=== PATIENT | female | born 1940 ===

== ENCOUNTER 2022-08-27 07:46 | Emergency (ER) | payer MEDICAID, SELFPAY ==
[2022-08-27] VITALS (8 sets, daily range): BP systolic 87–157; BP diastolic 45–95; PULSE 82–106; RESP 14–20; TEMP 36.7–36.9; O2SAT 97–99; BMI 36.3
--- NOTE | ~2022-08-27 | XR_ITS ---
EXAMINATION: XR CHEST CLINICAL INFORMATION: Chest pressure. COMPARISON: None available. TECHNIQUE: Frontal view of the chest was obtained. FINDINGS: Lungs are well expanded. No consolidation or pneumothorax. Linear opacity of minimal scar or atelectasis is present at the right lung base. The right lateral costophrenic sulcus appears to be slightly blunted. A trace right pleural effusion is suspected. There is cardiomegaly. No evidence of cephalization of pulmonary venous flow or overt interstitial edema. There is atherosclerotic calcification of the aorta. Multilevel osteophyte formation of the spine. 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 XR/XR chest 1V IMPRESSION: Cardiomegaly and likely trace right pleural effusion. No overt pulmonary edema.
--- NOTE | 2022-08-27 07:56 | ED.GENADULT ---
HPI - General Adult General Chief complaint: General Medical Stated complaint: high blood pressure Time Seen by Provider: 08/27/22 07:52 Source: patient and family Mode of arrival: ambulatory Limitations: language barrier History of Present Illness HPI narrative: Patient is an 82-year-old female with history of HTN and afib on Eliquis presenting with intermittent chest pressure and head/facial pressure and dizziness since 07/21/22. Patient is visiting from [place]. States symptoms began when she was there prior to 07/21 but worsened after arriving in the [place]. Reports feels as though she is drunk. Dizziness is intermittent and worse with head movements. Denies any syncope or near-syncope. Reports labile blood pressures in [place] and states her PCP is aware. Reports frontal head pressure but denies current headache, chest pain, palpitations, or dyspnea. She does report currently feeling dizzy. Reports increased ankle and pedal edema since arrival from [place]. Also reports nasal congestion, sinus pressure, and nonproductive cough. Denies fevers. Denies any blurred vision, double vision, or other vision changes. Denies any rectal bleeding or dark, tarry stools. Denies any abdominal pain or urinary symptoms. She denies any neck pain, denies any falls or trauma. MD complaint: Dizziness, chest pressure Onset (ago): month(s) Location: head, face and chest Severity: moderate Quality: other (pressure) Treatments prior to arrival: none Related Data Allergies Allergy/AdvReac Type Severity Reaction Status Date / Time No Known Allergies Allergy Verified 08/27/22 08:17 Review of Systems Review of Systems: As per HPI. Yes all other systems are reviewed and are negative Constitutional: Constitutional: Reports as per HPI [facility] Past Medical History Medical History (Updated 08/27/22 @ 16:11 by Funmilayo Le NP) Afib HTN (hypertension) Social History Social History Alcohol intake: never Smoked in Last 30 Days: No Use of substances other than those prescribed or required for medical reasons: No Advance Directives: Yes Advance Directives Information Provided: No Advance Directives on File: No Physical Exam ED Vital Signs: Vital Signs - 24 hr 08/27/22 07:59 08/27/22 09:42 08/27/22 10:18 Temperature 98.4 F Pulse Rate 100 86 82 Respiratory Rate 20 14 Blood Pressure 118/69 123/79 87/45 L Pulse Oximetry 99 97 Oxygen Delivery Method Room Air Room Air 08/27/22 10:19 08/27/22 10:22 08/27/22 14:57 Temperature 98.1 F Pulse Rate 95 106 H 84 Respiratory Rate 20 Blood Pressure 134/89 147/88 H 136/81 Pulse Oximetry 98 Oxygen Delivery Method Room Air 08/27/22 14:57 08/27/22 14:58 08/27/22 15:00 Temperature Pulse Rate 84 92 96 Respiratory Rate Blood Pressure 136/81 147/95 H 157/94 H Pulse Oximetry Oxygen Delivery Method BMI result Body Mass Index 36.3 Vital signs have been reviewed and appear to be correct. Blood pressure normal. Heart rate normal. Respiratory rate normal. Temperature normal. Oxygen saturation normal. Const General: cooperative, healthy appearing and no acute distress Orientation/consciousness: oriented to person, oriented to place, oriented to time and patient oriented x3 Limitations: no limitations HENMT Head: Yes normocephalic and Yes atraumatic Ears: external ears normal General nose exam: Normal external nose present Face and sinus: Yes face symmetric Mouth: oropharynx normal and moist mucous membranes Throat: Yes uvula midline Eyes Pupils: Equal, round and reactive pupils present Neck Neck: Yes normal visual inspection, Yes no meningeal signs and Yes supple Resp Effort & Inspection: normal respiratory effort and able to speak in complete sentences Auscultation: clear to auscultation bilaterally Cardio Rate: regular rate Rhythm: abnormal rhythm irregularly irregular Heart sounds: S1 normal heart sound present and S2 normal heart sound present Peripheral pulses: Peripheral pulses 2+ throughout and dorsalis pedis present bilateral GI Palpation (GI): Soft to palpation and nontender Auscultation: normoactive bowel sounds General: Yes no CVA tenderness Back/Spine/Pelvis Back: no CVA tenderness Skin General skin exam: elasticity normal and turgor normal Neuro General: oriented to person, oriented to place, oriented to time, patient oriented x3, gait normal, tone normal, moves all extremities, no meningeal signs, no focal motor deficits and CN's II-XI intact bilaterally Cranial nerves: Yes Equal, round and reactive pupils present Cognition (Neuro): normal cognition Extrem General: Yes full ROM and Yes no calf tenderness Right lower extremity: ankle Details: edema Details: non-pitting and foot Details: edema Location: diffusely Details: non-pitting Left lower extremity: ankle Details: pitting edema Details: non-pitting and foot Details: edema Location: diffusely Details: non-pitting Psych Mental Status: mental status grossly normal Affect: normal affect Thought process: Normal thought process present Course Course Course Narrative: 10:05 BNP 302, labs otherwise unremarkable, urine negative for infection. Will obtain orthostatic VS, likely stable for discharge home for follow up with PCP. FINDINGS: Lungs are well expanded. No consolidation or pneumothorax. Linear opacity of minimal scar or atelectasis is present at the right lung base. The right lateral costophrenic sulcus appears to be slightly blunted. A trace right pleural effusion is suspected. There is cardiomegaly. No evidence of cephalization of pulmonary venous flow or overt interstitial edema. There is atherosclerotic calcification of the aorta. Multilevel osteophyte formation of the spine. 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 XR/XR chest 1V IMPRESSION: Cardiomegaly and likely trace right pleural effusion. No overt pulmonary edema. 11:07 Orthostatic intolerance noted with orthostatic VS. Will administer small fluid bolus and reassess. 14:54 IVF finished infusing, will repeat orthostatic VS and reassess 15:12 Orthostatic VS improved after fluids, feel patient is stable for discharge home at this time. Daughter states that patient will be returning to [place] on 09/07, discussed with patient and daughter that if she develops worsening symptoms prior to return to [place] that she can always return to this or another emergency department for evaluation. Instructed patient to follow-up with her PCP once she has returned to [place]. Feel presentation is most consistent with labile blood pressures and return precautions discussed at bedside. Patient and daughter agreeable with plan of care. Medications Administered Discontinued Medications Generic Name Dose Route Start Last Admin Trade Name Freq PRN Reason Stop Dose Admin Sodium Chloride 500 mls @ 500 mls/hr 08/27/22 11:15 08/27/22 12:10 Ns IV 08/27/22 12:14 Infused .Q1H TESFAYE Infusion Medical Decision Making Medical Decision Making [facility] Narrative: Patient is an 82-year-old female with history of HTN and afib on Eliquis presenting with intermittent chest pressure and head/facial pressure and dizziness since 07/21/22. On exam patient is awake, A+Ox3, nontoxic appearing, normal neurological exam without focal deficits, afib with controlled rate, LS CTA throughout, ABD SNT, mild non-pitting bilateral pedal edema. Given reported symptoms and physical exam findings concerned for anemia, UTI/pna, dehydration, BPPV, allergic rhinitis. Given intermittent chest pressure will obtain labs including troponin and BNP to assess for ACS, fluid overload. No evidence of STEMI on EKG. Unlikely ICH given reported history and physical exam findings. Plan: EKG, labs, CXR, UA Please refer to course for remaining clinical decision making. Differential Diagnosis Differential Diagnoses: The differential diagnosis associated with the presentation includes As above. Admission/Observation Consideration of admission/observation: Escalation of care including admission/observation considered Lab Data MDM Lab Attestation statement: I reviewed the patient's lab results. 08/27/22 08:49 08/27/22 08:49 Labs: Lab Results 08/27/22 08/27/22 08/27/22 Range/Units 08:49 08:49 08:49 WBC 6.4 (4.8-10.8) X10*3/uL RBC 4.64 (4.20-5.50) X10*6/uL Hgb 13.7 (12.0-16.0) g/dl Hct 42.0 (37.0-47.0) % MCV 90.5 (80.0-98.0) fL MCH 29.5 (27.0-33.0) pg MCHC 32.6 (31.0-35.0) g/dl RDW 14.2 (11.0-16.0) % Plt Count 182 (160-400) X10*3/uL MPV 11.6 (9.4-12.3) fL Immature Gran % (Auto) 0.3 (0.0-0.4) % Neut % (Auto) 66.3 (45-73) % Lymph % (Auto) 22.3 (20-40) % [place] % (Auto) 8.1 (2-11) % Eos % (Auto) 2.2 (0-4) % Baso % (Auto) 0.8 (0-2) % Lymph # (Auto) 1.4 (1.2-4.9) X10*3/uL [place] # (Auto) 0.5 (0.1-1.2) X10*3/uL Eos # (Auto) 0.1 (0.0-0.4) X10*3/uL Baso # (Auto) 0.1 (0.0-0.2) X10*3/uL Abs Immat Gran (auto) 0.02 (0.00-0.03) X10*3/uL Absolute Neuts (auto) 4.3 (2.0-8.3) x10*3/uL Absolute Nucleated RBC 0.000 (0.0-0.012) X10*3/uL Nucleated RBC % (auto) 0.0 (0.0-0.2) /100WBC Sodium 142 (135-145) mmol/L Potassium 4.7 (3.3-5.1) mmol/L Chloride 108 (96-108) mmol/L Carbon Dioxide 29 (22-29) mmol/L Anion Gap 10 L (12-20) BUN 13 (9-16) mg/dL Creatinine 0.90 (0.5-1.4) mg/dL Estim Creat Clear Calc 49.4 Estimated GFR 60 Random Glucose 149 H (60-115) mg/dL Calcium 9.2 (8.4-10.2) mg/dL Troponin I High Sens (<3.5-17.0) ng/L B-Natriuretic Peptide 302 H (<100) pg/mL Urine Color Urine Appearance Urine pH (5.0-9.0) Ur Specific [place] (1.005-1.025) Urine Protein (Neg-Trace) mg/dL Urine Glucose (UA) (Negative) mg/dL Urine Ketones (Negative) mg/dL Urine Blood (Negative) Urine Nitrite (Negative) Ur Leukocyte Esterase (Negative) 08/27/22 08/27/22 Range/Units 08:49 09:24 WBC (4.8-10.8) X10*3/uL RBC (4.20-5.50) X10*6/uL Hgb (12.0-16.0) g/dl Hct (37.0-47.0) % MCV (80.0-98.0) fL MCH (27.0-33.0) pg MCHC (31.0-35.0) g/dl RDW (11.0-16.0) % Plt Count (160-400) X10*3/uL MPV (9.4-12.3) fL Immature Gran % (Auto) (0.0-0.4) % Neut % (Auto) (45-73) % Lymph % (Auto) (20-40) % [place] % (Auto) (2-11) % Eos % (Auto) (0-4) % Baso % (Auto) (0-2) % Lymph # (Auto) (1.2-4.9) X10*3/uL [place] # (Auto) (0.1-1.2) X10*3/uL Eos # (Auto) (0.0-0.4) X10*3/uL Baso # (Auto) (0.0-0.2) X10*3/uL Abs Immat Gran (auto) (0.00-0.03) X10*3/uL Absolute Neuts (auto) (2.0-8.3) x10*3/uL Absolute Nucleated RBC (0.0-0.012) X10*3/uL Nucleated RBC % (auto) (0.0-0.2) /100WBC Sodium (135-145) mmol/L Potassium (3.3-5.1) mmol/L Chloride (96-108) mmol/L Carbon Dioxide (22-29) mmol/L Anion Gap (12-20) BUN (9-16) mg/dL Creatinine (0.5-1.4) mg/dL Estim Creat Clear Calc Estimated GFR Random Glucose (60-115) mg/dL Calcium (8.4-10.2) mg/dL Troponin I High Sens < 2.7 (<3.5-17.0) ng/L B-Natriuretic Peptide (<100) pg/mL Urine Color Yellow Urine Appearance Clear Urine pH 6.5 (5.0-9.0) Ur Specific [place] 1.010 (1.005-1.025) Urine Protein Negative (Neg-Trace) mg/dL Urine Glucose (UA) Negative (Negative) mg/dL Urine Ketones Negative (Negative) mg/dL Urine Blood Negative (Negative) Urine Nitrite Negative (Negative) Ur Leukocyte Esterase Negative (Negative) Independent Interpretation I performed an independent interpretation of an: EKG and Plain X-Ray Interpretation: EKG: atrial fibrillation with PVCs, rate 96bpm, normal QT interval, no evidence of STEMI; I independently reviewed the x-ray and agree with the radiologist's interpretation. Radiology Impression Discussion of test interpretation with radiology: I have reviewed the radiologist's reading. Independent Historian Clinical information obtained from an independent historian. History obtained from or confirmed by: Other (daughter) External Record Review External record reviewed: Inpatient record, Office record and Outpatient record Chronic Conditions Patient?s care impacted by: Hypertension and Other (Afib) Discharge Plan Discharge Clinical Impression: Labile blood pressure Patient Disposition: Home, Self-Care Instructions: Dizziness (ED) Additional Instructions: You have been evaluated in the emergency department today for dizziness and blood pressure fluctuations. Please follow up with your primary care provider as soon as you return to [place]. Return to the emergency department immediately for worsening or uncontrolled symptoms, worsening headache, chest pain, shortness of breath, persistent vomiting, vision changes, fainting, or for any other concerning symptoms. Print Language: Malagasy
--- NOTE | 2022-08-27 08:17 | ECG_ITS ---
Test Reason : CHEST PRESSURE Blood Pressure : / mmHG Vent. Rate : 096 BPM Atrial Rate : 000 BPM P-R Int : 000 ms QRS Dur : 078 ms QT Int : 352 ms P-R-T Axes : 000 005 005 degrees QTc Int : 444 ms Atrial fibrillation with premature ventricular or aberrantly conducted complexes Abnormal ECG No previous ECGs available Referred By: Funmilayo Le Electronically Signed By:TRISTEN THORNE MD
[2022-08-27 08:56] LABS: MANUAL DIFF FLAG NO
[2022-08-27 09:01] LABS: Basophils Absolute Auto 0.1 X10*3/uL (0.0-0.2); Basophils Percent Auto 0.8 % (0-2); Eosinophils Absolute Auto 0.1 X10*3/uL (0.0-0.4); Eosinophils Percent Auto 2.2 % (0-4); Hemoglobin 13.7 g/dl (12.0-16.0); Imm Gran Abs Auto 0.02 X10*3/uL (0.00-0.03); Imm Gran Pct Auto 0.3 % (0.0-0.4); Lymphocytes Absolute Auto 1.4 X10*3/uL (1.2-4.9); Lymphocytes Percent Auto 22.3 % (20-40); Mean Corpuscular HGB Conc 32.6 g/dl (31.0-35.0); Mean Corpuscular Hemoglobin 29.5 pg (27.0-33.0); Mean Corpuscular Volume 90.5 fL (80.0-98.0); Mean Platelet Volume 11.6 fL (9.4-12.3); Monocytes Absolute Auto 0.5 X10*3/uL (0.1-1.2); Monocytes Percent Auto 8.1 % (2-11); Neutrophils Absolute Auto 4.3 x10*3/uL (2.0-8.3); Neutrophils Percent Auto 66.3 % (45-73); Platelet Count 182 X10*3/uL (160-400); Red Blood Count 4.64 X10*6/uL (4.20-5.50); Red Cell Distribution Width 14.2 % (11.0-16.0); White Blood Count 6.4 X10*3/uL (4.8-10.8)
[2022-08-27 09:15] LABS: Anion Gap 10 (12-20); Blood Urea Nitrogen 13 mg/dL (9-16); Calcium 9.2 mg/dL (8.4-10.2); Carbon Dioxide 29 mmol/L (22-29); Chloride 108 mmol/L (96-108); Creatinine Clr Calc Pharmacy 49.4; Estimated Glomerular Filt Rate 60; Glucose Random 149 mg/dL (60-115); Potassium 4.7 mmol/L (3.3-5.1); Sodium 142 mmol/L (135-145)
[2022-08-27 09:20] LABS: B Type Natriuretic Peptide 302 pg/mL (<100)
[2022-08-27 09:25] LABS: Troponin-I High Sensitivity < 2.7 ng/L (<3.5-17.0)
[2022-08-27 09:31] LABS: Appearance Urine Clear; Color Urine Yellow; Glucose Urine UA Negative (Negative); Leukocyte Esterase Urine Negative (Negative); Nitrite Urine Negative (Negative); PH 6.5 (5.0-9.0); Urine Blood Negative (Negative); Urine Ketones Negative (Negative); Urine Protein Negative (Neg-Trace)
[2022-08-27] MEDS: 0.9 % Sodium Chloride 500 ML IV (11:17)
== END 2022-08-27 16:27 | disposition home or self-care (01) ==
PROVIDERS: Registered Nurse Emergency; Emergency Provider Emergency Medicine
DX: R09.89 Other specified symptoms and signs involving the circulatory and respiratory systems (principal); R42 Dizziness and giddiness; R60.0 Localized edema; I10 Essential (primary) hypertension; I48.91 Unspecified atrial fibrillation; Z79.01 Long term (current) use of anticoagulants
CPT/HCPCS: 36415; 71045; 80048; 81003; 83880; 84484; 85025; 93005; 96360; 99284; 99285

== ENCOUNTER 2023-12-19 13:53 | Inpatient (IN) | payer MEDICARE, SELFPAY ==
[2023-12-19] VITALS (7 sets, daily range): BP systolic 140–173; BP diastolic 84–111; PULSE 89–108; RESP 16–20; TEMP 35.8–36.9; O2SAT 95–98; BMI 43.9
--- NOTE | ~2023-12-19 | XR_ITS ---
EXAMINATION: XR CHEST CLINICAL INFORMATION: Pain, injury COMPARISON: Chest radiograph 08/27/2022 TECHNIQUE: Frontal view of the chest was obtained. FINDINGS: The heart is enlarged. There is equivocal upper zone redistribution. Bibasilar atelectasis is present. An area of infiltrate may be present at the left lung base. Small bilateral pleural effusions are seen. Degenerative changes are present throughout the spine with mild scoliosis. XR/XR chest 1V IMPRESSION: Cardiomegaly with equivocal mild pulmonary vascular congestion and small bilateral pleural effusions. Possible infiltrate left lung base. Electronically signed by: Jesús Gillespie MD 12/19/2023 04:21 PM EDT
--- NOTE | 2023-12-19 14:23 | ECG_ITS ---
Test Reason : SOB Blood Pressure : / mmHG Vent. Rate : 099 BPM Atrial Rate : 000 BPM P-R Int : 000 ms QRS Dur : 074 ms QT Int : 312 ms P-R-T Axes : 000 007 -04 degrees QTc Int : 400 ms Atrial fibrillation Abnormal ECG When compared with ECG of 27-AUG-2022 08:31, No significant change was found Referred By: Carissa Pastrana Electronically Signed By:RASHEEDA TORRE
--- NOTE | 2023-12-19 14:39 | ED_ITS ---
HPI - General Adult General Chief complaint: Dizziness Stated complaint: SOB ON EXERTION,WEAK,HIGH BP 151/121 PER EMS Time Seen by Provider: 12/19/23 14:28 Source: patient, family ( Daughter) and EMS Mode of arrival: EMS Limitations: no limitations History of Present Illness ED Provider: DR. Salas HPI narrative: 83-year-old female history of hypertension and AFib on Eliquis patient recently moved from [place] to live with [place]In the [place] of transferring her medical record and insurance to the [email or web address] system. Patient Eliquis, metoprolol, atorvastatin. For the past month patient been having generalized weakness and shortness of breath, symptoms is worsening now patient is complaining difficulty breathing when she lies supine at nighttime require multiple pillows to sleep on and she still get up at the middle of the night gasping for air and turn the fan on in order to breathe better, noticed also swelling of her ankles bilaterally. No fever, no chills, no exposure to a sick contact, no coughing. Related Data Allergies Allergy/AdvReac Type Severity Reaction Status Date / Time No Known Allergies Allergy Verified 12/19/23 14:27 Review of Systems 2 Review of Systems: All other systems are reviewed and are negative Constitutional: Reports as per HPI and Reports no additional constitutional complaints Eyes: Reports as per HPI and Reports no additional eye complaints Reports system reviewed and no additional complaints, except as documented Cardiovascular: Reports as per HPI and Reports no additional cardiovascular complaints Respiratory: Reports as per HPI and Reports no additional respiratory complaints Gastrointestinal: Reports as per HPI and Reports no additional gastrointestinal complaints Genitourinary: Reports no additional female genitourinary complaints Musculoskeletal: Reports no additional musculoskeletal complaints Skin/Breast: Reports system reviewed and no additional complaints, except as docu Psychiatric: Reports no additional psychiatric complaints Endocrine: Reports no additional endocrine complaints Hematologic/Lymphatic: Reports no additional hematologic/lymphatic complaints Allergic/Immunologic: Reports no additional allergic/immunologic complaints Reports system reviewed and no additional complaints, except as documented and Reports Abnormal speech present [facility] Past Medical History Medical History Afib HTN (hypertension) Social History Social History Alcohol intake: never Smoked in Last 30 Days: No Use of substances other than those prescribed or required for medical reasons: No Advance Directives: No Advance Directives Information Provided: No Physical Exam ED Vital Signs: Vital Signs - 24 hr 12/19/23 14:24 12/19/23 15:25 12/19/23 15:34 Temperature 98.5 F 97.9 F Pulse Rate 89 107 H Respiratory Rate 20 Blood Pressure 173/111 H 148/105 H 148/105 H Pulse Oximetry 98 96 Oxygen Delivery Method Room Air Room Air BMI result Body Mass Index 43.9 Vital signs have been reviewed and appear to be correct. Blood pressure elevated. Heart rate normal. Respiratory rate normal. Temperature normal. Oxygen saturation normal. Appearance: Alert. Oriented X3. No acute distress. Head: Normal external exam. Normocephalic. Atraumatic. No Velazquez signs noted. No raccoon eyes noted Eyes: PERRLA. EOMI. Conjunctiva and sclera normal. Eyelids normal. ENT: TM's Normal. Pharynx normal. Uvula midline. Moist mucous membranes. No trismus noted. No drooling noted. No muffled voice noted. Neck: Normal inspection. Neck supple. FROM. No adenopathy. Thyroid Normal. No meningeal signs. No neck mass noted. CVS: Normal heart rate and rhythm. Heart sound normal. No murmurs noted. Pulses normal throughout. Respiratory: No respiratory distress. Painless inspiration. Breath sounds normal. Bilateral lower basilar rales.Chest nontender. No accessory muscle usage noted or decreased air movement noted. Abdomen: Soft and nontender. Bowel sounds normal in all 4 quadrants. No distention noted. No organomegaly noted. No visible injury noted. Back: No CVA tenderness. Full range of motion noted. Skin: Skin warm and dry. Normal skin color. Normal skin turgor. No rashes/lesions/lacerations noted. Extremities: +1 bilateral lower extremity edema. Extremities exhibit normal range of motion. Extremities nontender. Neuro: Oriented X 3. Cranial nerve exam: II-XII are grossly intact No motor deficit. No sensory deficit. Reflexes normal. Course Reevaluation(s) Reevaluation #1: 83-year-old female presented with PND and exertional dyspnea past medical record is unavailable at the moment in the process of being transferred from [place] only taking Eliquis and metoprolol currently. symptoms , chest x- ray, labs are suggestive of congestive heart failure. Admit for CHF management received Lasix and nitro in the ED. Time: 16:33 Medications Administered Discontinued Medications Generic Name Dose Route Start Last Admin Trade Name Macey PRN Reason Stop Dose Admin Furosemide 40 mg 12/19/23 14:38 12/19/23 15:25 Furosemide 40 Mg/4 Ml Vial IVPUSH 12/19/23 14:39 40 mg ONCE ONE Administration Protocol Nitroglycerin 0.5 inch 12/19/23 14:38 12/19/23 15:33 Nitroglycerin 2 % Oint 1 Gm Packet TRANSDERMA 12/19/23 14:39 0.5 inch ONCE ONE Administration Medical Decision Making Differential Diagnosis Differential Diagnoses: The differential diagnosis associated with the presentation includes ( congestive heart failure, pneumonia, pleural effusion, severe anemia, electrolyte derangement, rapid AFib, ensure anticoagulation.) Admission/Observation Consideration of admission/observation: Escalation of care including admission/observation considered Consult Healthcare Provider Management of the patient was discussed with: Hospitalist ( Dr. Chávez) Lab Data MDM Lab Attestation statement: I reviewed the patient's lab results. 12/19/23 15:23 12/19/23 15:23 Labs: Lab Results 12/19/23 12/19/23 Range/Units 15:23 15:54 WBC 9.1 (4.8-10.8) X10*3/uL RBC 4.53 (4.20-5.50) X10*6/uL Hgb 13.6 (12.0-16.0) g/dl Hct 41.1 (37.0-47.0) % MCV 90.7 (80.0-98.0) fL MCH 30.0 (27.0-33.0) pg MCHC 33.1 (31.0-35.0) g/dl RDW 15.0 (11.0-16.0) % Plt Count 159 L (160-400) X10*3/uL MPV 12.6 H (9.4-12.3) fL Immature Gran % (Auto) 0.4 (0.0-0.4) % Neut % (Auto) 73.5 H (45-73) % Lymph % (Auto) 14.4 L (20-40) % [place] % (Auto) 10.3 (2-11) % Eos % (Auto) 0.5 (0-4) % Baso % (Auto) 0.9 (0-2) % Lymph # (Auto) 1.3 (1.2-4.9) X10*3/uL [place] # (Auto) 0.9 (0.1-1.2) X10*3/uL Eos # (Auto) 0.1 (0.0-0.4) X10*3/uL Baso # (Auto) 0.1 (0.0-0.2) X10*3/uL Abs Immat Gran (auto) 0.04 H (0.00-0.03) X10*3/uL Absolute Neuts (auto) 6.7 (2.0-8.3) x10*3/uL Absolute Nucleated RBC 0.000 (0.0-0.012) X10*3/uL Nucleated RBC % (auto) 0.0 (0.0-0.2) /100WBC PT 22.9 H (10.9-12.4) SEC INR 2.0 H (0.9-1.1) APTT 35.8 (26.0-36.8) SEC Sodium 142 (135-145) mmol/L Potassium 4.6 (3.3-5.1) mmol/L Chloride 109 H (96-108) mmol/L Carbon Dioxide 26 (22-29) mmol/L Anion Gap 12 (12-20) BUN 14 (9-16) mg/dL Creatinine 0.83 (0.5-1.4) mg/dL Estim Creat Clear Calc 58.6 Estimated GFR > 60 Random Glucose 136 H (60-115) mg/dL Calcium 8.9 (8.4-10.2) mg/dL Magnesium 2.0 (1.6-2.6) mg/dL Total Bilirubin 3.9 H (0.0-1.0) mg/dL AST 29 (5-31) U/L ALT 21 (0-31) U/L Alkaline Phosphatase 61 (39-117) U/L Troponin I High Sens 7.5 D (<3.5-17.0) ng/L B-Natriuretic Peptide 1062 H (<100) pg/mL Total Protein 5.8 L (6.5-8.0) g/dL Albumin 3.4 L (3.5-5.0) g/dL Urine Color Yellow Urine Appearance Clear Urine pH 6.0 (5.0-9.0) Ur Specific [place] 1.010 (1.005-1.025) Urine Protein 30 (1+) H (Neg-Trace) mg/dL Urine Glucose (UA) Negative (Negative) mg/dL Urine Ketones Negative (Negative) mg/dL Urine Blood Negative (Negative) Urine Nitrite Negative (Negative) Ur Leukocyte Esterase Negative (Negative) Urine RBC 0-2 (0-2) /HPF Urine WBC 0-5 (0-5) /HPF Ur Squamous Epith Cells 3-5 (0-2) /HPF Urine Bacteria None Seen (None Seen) Hyaline Casts 0-2 (0-2) /LPF Influenza Type A (PCR) NEGATIVE (Negative) Influenza Type B (PCR) NEGATIVE (Negative) RSV RNA Qual (PCR) NEGATIVE (Negative) SARS-CoV-2 RNA (RT-PCR) NEGATIVE (Negative) Independent Interpretation I performed an independent interpretation of an: EKG ( Atrial fibrillation at 99 beats per minute, with no significant change from previous EKG.) and Plain X- Ray ( chest:Cardiomegaly with equivocal mild pulmonary vascular congestion and small bilateral pleural effusions. Possible infiltrate left lung base. ) Radiology Impression Discussion of test interpretation with radiology: I have reviewed the radiologist's reading. Chronic Conditions Patient?s care impacted by: Hypertension and Other ( Atrial fibrillation.) Discharge Plan Discharge Clinical Impression: Congestive heart failure (CHF) Patient Disposition: Admitted As Inpatient Print Language: Tajik
[2023-12-19] MEDS: Furosemide 40 MG/4 ML VIAL IVPUSH ×2 (15:25→17:56)
[2023-12-19 15:28] LABS: MANUAL DIFF FLAG NO
[2023-12-19 15:33] LABS: Basophils Absolute Auto 0.1 X10*3/uL (0.0-0.2); Basophils Percent Auto 0.9 % (0-2); Eosinophils Absolute Auto 0.1 X10*3/uL (0.0-0.4); Eosinophils Percent Auto 0.5 % (0-4); Hematocrit 41.1 % (37.0-47.0); Hemoglobin 13.6 g/dl (12.0-16.0); Imm Gran Abs Auto 0.04 X10*3/uL (0.00-0.03); Imm Gran Pct Auto 0.4 % (0.0-0.4); Lymphocytes Absolute Auto 1.3 X10*3/uL (1.2-4.9); Lymphocytes Percent Auto 14.4 % (20-40); Mean Corpuscular HGB Conc 33.1 g/dl (31.0-35.0); Mean Corpuscular Volume 90.7 fL (80.0-98.0); Mean Platelet Volume 12.6 fL (9.4-12.3); Monocytes Absolute Auto 0.9 X10*3/uL (0.1-1.2); Monocytes Percent Auto 10.3 % (2-11); Neutrophils Absolute Auto 6.7 x10*3/uL (2.0-8.3); Neutrophils Percent Auto 73.5 % (45-73); Platelet Count 159 X10*3/uL (160-400); Red Blood Count 4.53 X10*6/uL (4.20-5.50); White Blood Count 9.1 X10*3/uL (4.8-10.8)
[2023-12-19] MEDS: Nitroglycerin 2 % Oint 1 GM Packet 0.5 INCH TRANSDERMA (15:33)
[2023-12-19 15:40] LABS: Prothrombin Time 22.9 SEC (10.9-12.4)
[2023-12-19 15:42] LABS: Partial Thromboplastin Time 35.8 SEC (26.0-36.8)
[2023-12-19 15:51] LABS: Alanine Aminotransferase 21 U/L (0-31); Albumin Level 3.4 g/dL (3.5-5.0); Alkaline Phosphatase 61 U/L (39-117); Anion Gap 12 (12-20); Aspartate Amino Transferase 29 U/L (5-31); Bilirubin Total 3.9 mg/dL (0.0-1.0); Blood Urea Nitrogen 14 mg/dL (9-16); Calcium 8.9 mg/dL (8.4-10.2); Carbon Dioxide 26 mmol/L (22-29); Chloride 109 mmol/L (96-108); Creatinine Clr Calc Pharmacy 58.6; Estimated Glomerular Filt Rate > 60; Glucose Random 136 mg/dL (60-115); Potassium 4.6 mmol/L (3.3-5.1); Sodium 142 mmol/L (135-145); Total Protein 5.8 g/dL (6.5-8.0)
[2023-12-19 15:58] LABS: Troponin-I High Sensitivity 7.5 ng/L (<3.5-17.0)
[2023-12-19 16:00] LABS: B Type Natriuretic Peptide 1062 pg/mL (<100)
[2023-12-19 16:03] LABS: Appearance Urine Clear; Color Urine Yellow; Glucose Urine UA Negative (Negative); Leukocyte Esterase Urine Negative (Negative); Nitrite Urine Negative (Negative); UMIC TRIGGER UACC YES; Urine Blood Negative (Negative); Urine Ketones Negative (Negative); Urine Protein 30 (1+) mg/dL (Neg-Trace)
[2023-12-19 16:05] LABS: Bacteria Urine None Seen (None Seen); Hyaline Casts Urine 0-2 /LPF (0-2); RBC Urine 0-2 /HPF (0-2); WBC Urine 0-5 /HPF (0-5)
[2023-12-19 16:16] LABS: Influenza A PCR NEGATIVE (Negative); Influenza B PCR NEGATIVE (Negative); Resp Syncy Virus RNA Qual PCR NEGATIVE (Negative); SARS COV2 PCR INHOUSE NEGATIVE (Negative)
--- NOTE | 2023-12-19 16:36 | PC.NURSE ---
up to commode with one assist, total of 300mL urine output.
--- NOTE | 2023-12-19 17:59 | PC.NURSE ---
patient medicated per the MAR, placed in hospital bed for comfort. offering no other complaints at this time, resting quietly in room w/ pure wick in place. urine output from pure wick approx 900mL
--- NOTE | 2023-12-19 18:28 | P.HPHOSP_ITS ---
History of Present Illness Date of Service: 12/19/23 Attending physician on admission: Star Chávez Chief Complaint: chf 83 y/o F with multiple comorbidities including hypertension, chronic AFib, history of syncopal episode recently, osteoarthritis-she recently moved from [place] to visit her daughter and subsequently did not decide to go back. She is having progressive shortness of breath for few weeks, leg edema, did not check her weight, she says she does not restrict her diet or hydration, neither she takes her weights. Patient says that from last couple of weeks it is becoming very difficult to lie flat, using multiple pillows, wake up in the night to catch breathing sometime. In addition to that patient says she has dizziness-for which? Unclear reason she was started on losartan in [place], she said she ran out of it. Denies any fever or chills or chest pain or palpitations or cough. Labs grider-CBC fine mild thrombocytopenia. BMP: Seems fine. Bilirubin is 3.9 BNP is 1062 Chest x-ray:Cardiomegaly with equivocal mild pulmonary vascular congestion and small bilateral pleural effusions. Possible infiltrate left lung base. EKG: AFib with RVR rate of 99 around Patient was given IV Lasix and requested admission for CHF exacerbation. Review of Systems 2 Review of Systems: As above. Yes all other systems are reviewed and are negative [facility] Medical History Afib HTN (hypertension) Social History Alcohol intake: never Patient Tobacco Use Status: Tobacco use Unknown Smoked in Last 30 Days: No Use of substances other than those prescribed or required for medical reasons: No Advance Directives: No Advance Directives Information Provided: No Meds Allergies Allergy/AdvReac Type Severity Reaction Status Date / Time No Known Allergies Allergy Verified 12/19/23 14:27 Active Medications: Current Medications Acetaminophen (Acetaminophen 325 Mg Tablet) 650 mg PO Q6H PRN PRN Reason: Pain, Mild (Pain Scale 1-3), fever or headache Calcium Carbonate (Calcium Carbonate 750 Mg Tab.Chew) 750 mg PO Q4H PRN PRN Reason: Heartburn Furosemide (Furosemide 40 Mg/4 Ml Vial) 40 mg IVPUSH DAILY [facility]; Protocol Last Admin: 12/19/23 17:56 Dose: 40 mg Magnesium Hydroxide (Milk Of Magnesia 30 Ml Oral.Susp) 30 ml PO DAILY PRN PRN Reason: Constipation Melatonin (Melatonin 3 Mg Tablet) 6 mg PO BEDTIME PRN PRN Reason: Insomnia Sodium Chloride (0.9 % Sodium Chloride Flush 3 Ml Syringe) 3 ml IVFLUSH QSHIFT [facility] Home Medications ?Medication ?Instructions ?Recorded ?Confirmed ?Last Taken ?Type apixaban 5 mg tablet (Eliquis) 2.5 mg PO BID 12/19/23 12/19/23 12/19/23 07:00 History hydralazine 25 mg tablet 25 mg PO DAILY 12/19/23 12/19/23 Unknown History losartan 100 mg tablet 100 mg PO DAILY 12/19/23 12/19/23 12/19/23 07:00 History metoprolol succinate 100 mg 100 mg PO BID 12/19/23 12/19/23 12/19/23 07:00 History tablet,extended release 24 hr Physical Exam 2 Vital Signs and Narrative: Vital Signs: Last Vital Signs Temp 98.4 F 12/19/23 17:52 Pulse 103 H 12/19/23 17:52 Resp 16 12/19/23 17:52 BP 150/101 H 12/19/23 17:52 Pulse Ox 96 12/19/23 17:52 O2 Del Method Room Air 12/19/23 17:52 BMI result Body Mass Index 43.9 Appearance: Alert.? Oriented X3.? sob Eyes: Pupils equal, round and reactive to light.? Sclera nonicteric.? ENT: Pharynx normal.? Moist mucous membranes. cvs: irregular rythem,, [id number] ,jvd+ res: Air entry fair has bilateral rales abd: no rebound or guarding ,nt, bs present. ext pulses present , no cyanosis ,3+edema neuro: axo3 , nonfocal. Results Labs 12/19/23 15:23 12/19/23 15:23 Labs: Laboratory Results - last 24 hr 12/19/23 12/19/23 15:23 15:54 MCV 90.7 MCH 30.0 MCHC 33.1 RDW 15.0 Plt Count 159 L MPV 12.6 H Immature Gran % (Auto) 0.4 Neut % (Auto) 73.5 H Lymph % (Auto) 14.4 L [place] % (Auto) 10.3 Eos % (Auto) 0.5 Baso % (Auto) 0.9 Lymph # (Auto) 1.3 [place] # (Auto) 0.9 Eos # (Auto) 0.1 Baso # (Auto) 0.1 Abs Immat Gran (auto) 0.04 H Absolute Neuts (auto) 6.7 Absolute Nucleated RBC 0.000 Nucleated RBC % (auto) 0.0 PT 22.9 H INR 2.0 H APTT 35.8 Anion Gap 12 Estim Creat Clear Calc 58.6 Estimated GFR > 60 Random Glucose 136 H Calcium 8.9 Magnesium 2.0 Total Bilirubin 3.9 H AST 29 ALT 21 Alkaline Phosphatase 61 Troponin I High Sens 7.5 D B-Natriuretic Peptide 1062 H Total Protein 5.8 L Albumin 3.4 L Urine Color Yellow Urine Appearance Clear Urine pH 6.0 Ur Specific [place] 1.010 Urine Protein 30 (1+) H Urine Glucose (UA) Negative Urine Ketones Negative Urine Blood Negative Urine Nitrite Negative Ur Leukocyte Esterase Negative Urine RBC 0-2 Urine WBC 0-5 Ur Squamous Epith Cells 3-5 Urine Bacteria None Seen Hyaline Casts 0-2 Influenza Type A (PCR) NEGATIVE Influenza Type B (PCR) NEGATIVE RSV RNA Qual (PCR) NEGATIVE SARS-CoV-2 RNA (RT-PCR) NEGATIVE Imaging Radiologist's Impressions: Impressions Chest X-Ray 12/19/23 14:23 IMPRESSION: Cardiomegaly with equivocal mild pulmonary vascular congestion and small bilateral pleural effusions. Possible infiltrate left lung base. Electronically signed by: Jesús Gillespie MD 12/19/2023 04:21 PM EDT Assessment and Plan (1) Congestive heart failure (CHF): Qualifiers: Heart failure type: unspecified Heart failure chronicity: unspecified Qualified Code(s): I50.9 - Heart failure, unspecified Status: Acute Plan 83 y/o F with multiple comorbidities including hypertension, chronic AFib, history of syncopal episode recently, osteoarthritis-comes with possible CHF exacerbation. Possible acute CHF exacerbation Short of breath, elevated BNP, trop x2 negative, EKG AFib with RVR Ventricular rate is stable around 100 range Monitor I&O Daily weights Continue home metoprolol, added losartan, IV Lasix Cardiology evaluation Uncontrolled hypertension: ? Question dizziness related to that since her PCP added losartan. Continue beta-katerina and losartan. Chronic AFib with RVR: Heart rate is around 100 maximum Continue home metoprolol dose. Continue Eliquis once reconciled Morbid obesity: Patient was encouraged to lose weight and cutdown calories. Continue medications for hypertension and other comorbidities once medications are reconciled. Above management discussed with the patient and her daughter at bedside in detail length they both understand and in agreement with the above plan, time spent 70 minute. Patient will benefit from 2 midnight stays considering CHF new onset and need further cardiac workup and IV diuresis Quality Stroke Does the patient have a stroke diagnosis?: No VTE Prior VTE?: No VTE Risk Level:: Medical - low VTE Device Contraindication: Patient Refused VTE Drug Contraindication: Patient Refused
--- NOTE | 2023-12-19 18:41 | PHA.MEDREC ---
Addendum entered by Taurus Cole [facility] 12/19/23 19:38: med rec checked by [facility] Original Note: Pharmacy Consult ? Medication Reconciliation Pharmacy has completed the medication reconciliation. Confirmed medications with daughter at bed side and prescription RX bottles from [facility] in [place]. The patient is taking Metoprolol Succinate 100mg 1 BID, Losartan Potassium 100 mg 1 daily, Eliquis 5mg and patient daughter states she recently had a fall in October and before the patient was taking a 1/2 tab BID regularly but states a Doctor upped it to 1 tab BID but thinks since she was taking 1 full tab shes been bleeding more and they brought her back down to 1/2 BID and its been better for her. The patient also exclaimed she has not been taking Hydralazine 25mg tab really and it seems like it since her bottle she has seems pretty full still. The patient states she took her morning medications this morning.
[2023-12-19] MEDS: Metoprolol Tartrate 100 MG TABLET PO (19:10)
[2023-12-19] MEDS: 0.9 % Sodium Chloride Flush 3 ML SYRINGE IVFLUSH (22:55)
[2023-12-20] VITALS (8 sets, daily range): BP systolic 136–161; BP diastolic 69–96; PULSE 88–110; RESP 16–22; TEMP 35.9–36.5; O2SAT 94–97
--- NOTE | 2023-12-20 07:00 | CA_ITS ---
Transthoracic Echocardiogram Patient (Last, First, Middle): Sandra Dorado, Gender: Female Date of : 1940 Age: 83 Procedure Date: 12/20/2023 Procedure Type: Transthoracic [place]ogram [place] [facility] [place]: 157.48 cm Weight: 108.86 kg BSA: 2.07 m2 Heart Rate: 107 bpm BP: 139 / 96 mmHg Risk Assessment Analyst: TO Referring MD: Star Chávez MD Symptoms: Chf Study Quality: Adequate ECG Rhythm: Atrial Fibrillation Conclusions: - The left ventricular systolic function is low normal. The calculated ejection fraction is 53% by biplane method. - The basal inferolateral segment is hypokinetic. - Severe biatrial enlargement. - There is moderate mitral valve regurgitation. - There is moderate tricuspid valve regurgitation. - Mild pulmonary hypertension is present. - Moderate plaque is seen in the sino tubular ridge. Findings Left Ventricle Normal left ventricular cavity size. The left ventricular systolic function is low normal. The calculated ejection fraction is 53% by biplane method. Diastolic function is indeterminate on the basis of available data. There is moderate septal asymmetric hypertrophy. Wall Motion Rest Echo Findings The basal inferolateral segment is hypokinetic. Right Ventricle Normal right ventricular cavity size. There is low normal right ventricular systolic function. Atria Severe biatrial enlargement. Aortic Valve There is a normal trileaflet aortic valve. There is mild calcification of the aortic valve. There is no aortic valve stenosis. There is no aortic valve regurgitation. Mitral Valve The mitral valve appears normal. There is mild anterior mitral leaflet thickening. There is moderate mitral valve regurgitation. There is no mitral valve stenosis. Pulmonic Valve The pulmonic valve is likely normal. Tricuspid Valve Normal tricuspid valve structure. There is moderate tricuspid valve regurgitation. Mild pulmonary hypertension is present. Great Vessels The aortic arch is normal in size. There is mild dilatation of the ascending aorta measuring 3.90 cm. Moderate plaque is seen in the sino tubular ridge. Venous The inferior vena cava is mildly dilated and collapses less than 50% with inspiration. Pericardium/Pleural There is a small loculated pericardial effusion overlying the right atrium. Prior Study Comparison No prior study available for comparison. Measurements 2D Linear Measurements IVSd: 1.44 0.6-0.9/0.6-1.0 cm LVIDd: 4.09 3.9-5.3/4.2-5.9 cm LVIDd Index: 1.98 2.4-3.2/2.2-3.1 cm/m2 LVIDs: 2.98 2.0-3.6 cm LVPWd: 0.86 0.7-1.1 cm LA Diam: 3.20 2.7-3.8/3.0-4.0 cm LAIDs Index: 1.55 1.5-2.3 cm/m2 LV Mass: 199.56 67-162/88-224 g LV Mass Index: 96.41 43-95/49-115 g/m2 LVOT Diam: 2.00 3.0+(-)1.3 cm 2D Systolic Function EF 4C: 51.50 >55% EF 2C: 54.10 >55% EF BiP: 52.90 >55% Mitral Valve MV VTI: 0.26 MV Pk John: 1.31 MV Mn John: 0.65 MV Pk Grad: 7.00 MV Mn Grad: 3.00 MV Pk E: 1.12 MV Decel Time: 121.00 E'Lateral: 5.87 E'Medial: 7.36 E/E' Med: 15.20 E/E' Lat: 19.10 PHT: 36.00 MVA PHT: 6.11 MVA Continuity: 1.24 Decel [place]: 9.19 MR Vol - PW Dopp: 32.20 MR VTI: 1.61 MR ERO: 20.00 MR Alias John: 0.35 MR RAD: 0.70 Aortic Valve AoV Pk John: 1.11 AoV Pk Grad: 5.00 LVOT LVOT Pk John: 0.70 LVOT Mn John: 0.46 LVOT VTI: 0.10 LVOT Pk Grad: 2.00 LVOT Mn Grad: 1.00 LVOT Diam: 2.00 LVOT Area: 3.14 Diastolic Function MV Pk E: 1.12 E'Medial: 7.36 E/E' Med: 15.20 E' Laterial: 5.87 E/E' Lat: 19.10 Right Ventricle TAPSE (mm): 16.16 TVS' John: 10.08 Tricuspid Valve TR Pk John: 3.10 TR Pk Grad: 38.00 RA Press: 15.00 RVSP: 53.00 Great Vessels Aorta Sinus of Valsalva: 3.09 2.0-3.5 cm Ao Asc: 3.90 2.1-3.4 cm Ao Arch: 2.90 Updated in Other Vendor System with Status of Final Jimmie Balderas MD electronically signed on 12/20/2023 11:44:44 AM with status of Final
[2023-12-20 08:30] LABS: Anion Gap 13 (12-20); Blood Urea Nitrogen 14 mg/dL (9-16); Calcium 8.9 mg/dL (8.4-10.2); Carbon Dioxide 30 mmol/L (22-29); Chloride 104 mmol/L (96-108); Creatinine Clr Calc Pharmacy 62.3; Estimated Glomerular Filt Rate > 60; Glucose Random 119 mg/dL (60-115); Potassium 3.3 mmol/L (3.3-5.1); Sodium 144 mmol/L (135-145)
[2023-12-20 08:34] LABS: B Type Natriuretic Peptide 790 pg/mL (<100)
--- NOTE | 2023-12-20 10:02 | PM.CNCAR ---
History of Present Illness History of Present Illness Date of Service: 12/20/23 Chief complaint: AFIB, htn Narrative: This is a cardiology consultation regarding congestive heart failure and hypertension. 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 Apparently history of hypertension as well as chronic atrial fibrillation. Recently, she has not been feeling good. She has been getting short increasingly for the last few weeks and she has had off and on leg swelling. Having difficulty lying down and has to use multiple pillows. She also has to wake up at night to catch her breath. There was 1 episode where she fell down but not entirely clear as to what that was. She has been admitted with diagnosis of atrial fibrillation, hypertension as well as congestive heart failure and we are asked to assess her. Review of Systems Review of Systems: Yes all other systems are reviewed and are negative Constitutional: Constitutional: Reports as per HPI and Reports no additional constitutional complaints Eyes: Eyes: Reports as per HPI and Denies no additional eye complaints ENT: Denies system reviewed and no additional complaints, except as documented and Reports as per HPI Cardiovascular: Cardiovascular: Reports as per HPI, Reports no additional cardiovascular complaints, Denies acrocyanosis, Denies cool extremities, Denies chest pain, Denies leg edema, Denies lightheadedness, Denies palpitations and Reports dyspnea Respiratory: Respiratory: Reports as per HPI, Denies no additional respiratory complaints and Reports dyspnea Gastrointestinal: Gastrointestinal: Reports as per HPI and Denies no additional gastrointestinal complaints Genitourinary: Genitourinary: Reports as per HPI Musculoskeletal: Musculoskeletal: Reports no additional musculoskeletal complaints and Reports as per HPI Integumentary/Breasts: Skin/Breast: Reports system reviewed and no additional complaints, except as docu Neurologic: Reports system reviewed and no additional complaints, except as documented and Reports as per HPI Psychiatric: Psychiatric: Reports no additional psychiatric complaints and Reports as per HPI Endocrine: Endocrine: Reports no additional endocrine complaints, Reports as per HPI and Denies palpitations Hematologic/Lymphatic: Hematologic/Lymphatic: Reports no additional hematologic/lymphatic complaints and Reports as per HPI Allergic/Immunologic: Allergic/Immunologic: Reports no additional allergic/immunologic complaints and Reports as per HPI PMF Past Medical History Medical History Afib HTN (hypertension) Family History Family History Father No problems noted. Mother No problems noted. Social History Social History Household Members: Children Housing: House Do you presently have visiting nurse or other home services: No Alcohol intake: never Patient Tobacco Use Status: Former Tobacco user e-Cigarette/Vaping Use: Never Used Second Hand Smoke Exposure: No Meds Allergies Allergy/AdvReac Type Severity Reaction Status Date / Time No Known Allergies Allergy Verified 12/19/23 14:27 Active Medications: Current Medications Acetaminophen (Acetaminophen 325 Mg Tablet) 650 mg PO Q6H PRN PRN Reason: Pain, Mild (Pain Scale 1-3), fever or headache Calcium Carbonate (Calcium Carbonate 750 Mg Tab.Chew) 750 mg PO Q4H PRN PRN Reason: Heartburn Furosemide (Furosemide 40 Mg/4 Ml Vial) 40 mg IVPUSH DAILY [facility]; Protocol Last Admin: 12/19/23 17:56 Dose: 40 mg Losartan Potassium (Losartan Potassium 25 Mg Tablet) 25 mg PO DAILY [facility]; Protocol Magnesium Hydroxide (Milk Of Magnesia 30 Ml Oral.Susp) 30 ml PO DAILY PRN PRN Reason: Constipation Melatonin (Melatonin 3 Mg Tablet) 6 mg PO BEDTIME PRN PRN Reason: Insomnia Metoprolol Tartrate (Metoprolol Tartrate 100 Mg Tablet) 100 mg PO BID [facility]; Protocol Last Admin: 12/19/23 19:10 Dose: 100 mg Sodium Chloride (0.9 % Sodium Chloride Flush 3 Ml Syringe) 3 ml IVFLUSH QSHIFT [facility] Last Admin: 12/19/23 22:55 Dose: 3 ml Home Medications ?Medication ?Instructions ?Recorded ?Confirmed ?Last Taken ?Type apixaban 5 mg tablet (Eliquis) 2.5 mg PO BID 12/19/23 12/19/23 12/19/23 07:00 History hydralazine 25 mg tablet 25 mg PO DAILY 12/19/23 12/19/23 Unknown History losartan 100 mg tablet 100 mg PO DAILY 12/19/23 12/19/23 12/19/23 07:00 History metoprolol succinate 100 mg 100 mg PO BID 12/19/23 12/19/23 12/19/23 07:00 History tablet,extended release 24 hr Physical Exam Vital Signs: Vital Signs: Last Vital Signs Temp 96.8 F 12/20/23 07:28 Pulse 110 H 12/20/23 07:28 Resp 20 12/20/23 07:28 BP 136/92 H 12/20/23 07:28 Pulse Ox 95 12/20/23 07:28 O2 Del Method Room Air 12/20/23 07:28 BMI result Body Mass Index 43.9 Const: General: comfortable and no acute distress Orientation/consciousness: patient oriented x3 HEENT: Other: Unremarkable Head: Yes normal to inspection Neck: Neck: Yes normal visual inspection Chest: Chest palpation & inspection: normal inspection of the chest Resp: Auscultation: crackles Cardio: Palpation: normal PMI Heart sounds: S1 normal heart sound present, S2 normal heart sound present, no gallops, no murmurs and no rubs GI: Palpation (GI): Soft to palpation Back/Spine/Pelvis: Other: unremarkable Skin: General skin exam: no rashes or lesions noted Neuro: General: patient oriented x3 Extrem: General: Yes normal to inspection Psych: Mental Status: mental status grossly normal Objective Labs and Meds 12/19/23 15:23 12/20/23 07:46 Lab results: Laboratory Results - last 24 hr 12/19/23 12/19/23 12/20/23 15:23 15:54 07:46 WBC 9.1 RBC 4.53 Hgb 13.6 Hct 41.1 MCV 90.7 MCH 30.0 MCHC 33.1 RDW 15.0 Plt Count 159 L MPV 12.6 H Immature Gran % (Auto) 0.4 Neut % (Auto) 73.5 H Lymph % (Auto) 14.4 L [place] % (Auto) 10.3 Eos % (Auto) 0.5 Baso % (Auto) 0.9 Lymph # (Auto) 1.3 [place] # (Auto) 0.9 Eos # (Auto) 0.1 Baso # (Auto) 0.1 Abs Immat Gran (auto) 0.04 H Absolute Neuts (auto) 6.7 Absolute Nucleated RBC 0.000 Nucleated RBC % (auto) 0.0 PT 22.9 H INR 2.0 H APTT 35.8 Sodium 142 144 Potassium 4.6 3.3 D Chloride 109 H 104 Carbon Dioxide 26 30 H Anion Gap 12 13 BUN 14 14 Creatinine 0.83 0.78 Estim Creat Clear Calc 58.6 62.3 Estimated GFR > 60 > 60 Random Glucose 136 H 119 H Calcium 8.9 8.9 Magnesium 2.0 Total Bilirubin 3.9 H AST 29 ALT 21 Alkaline Phosphatase 61 Troponin I High Sens 7.5 D B-Natriuretic Peptide 1062 H 790 H Total Protein 5.8 L Albumin 3.4 L Urine Color Yellow Urine Appearance Clear Urine pH 6.0 Ur Specific [place] 1.010 Urine Protein 30 (1+) H Urine Glucose (UA) Negative Urine Ketones Negative Urine Blood Negative Urine Nitrite Negative Ur Leukocyte Esterase Negative Urine RBC 0-2 Urine WBC 0-5 Ur Squamous Epith Cells 3-5 Urine Bacteria None Seen Hyaline Casts 0-2 Influenza Type A (PCR) NEGATIVE Influenza Type B (PCR) NEGATIVE RSV RNA Qual (PCR) NEGATIVE SARS-CoV-2 RNA (RT-PCR) NEGATIVE ECG Interpretation: EKG with atrial fibrillation; rate 99/min. Imaging Radiologist's impression: Impressions Chest X-Ray 12/19/23 14:23 IMPRESSION: Cardiomegaly with equivocal mild pulmonary vascular congestion and small bilateral pleural effusions. Possible infiltrate left lung base. Electronically signed by: Jesús Gillespie MD 12/19/2023 04:21 PM EDT RP Assessment and Plan (1) Acute CHF: Status: Acute Troponins within range. Cardiac BNP elevated. Chest x-ray is also supportive of congestive heart failure. IV diuretics. Echocardiogram. (2) Atrial fibrillation by electrocardiogram: Status: Acute Per home medication list, on metoprolol and Eliquis. Rate seems controlled. Need to adjust Eliquis dosing. (3) Hypertensive urgency: Status: Acute Blood pressure seems better. Up titrate losartan dose as necessary. Procedures Date of Service Date of Service: 12/20/23
[2023-12-20] MEDS: Furosemide 40 MG/4 ML VIAL IVPUSH (10:56)
[2023-12-20] MEDS: Losartan Potassium 25 MG TABLET PO (10:57)
[2023-12-20] MEDS: Metoprolol Tartrate 100 MG TABLET PO ×2 (10:57→21:34)
[2023-12-20] MEDS: 0.9 % Sodium Chloride Flush 3 ML SYRINGE IVFLUSH ×3 (10:57→21:35)
--- NOTE | 2023-12-20 11:15 | P.PNIM_ITS ---
Subjective Subjective Date of Service: 12/20/23 Review of Systems Follow up CHF feeling better, still with swelling no sob Physical Exam 2 Vital Signs: Vital Signs: Last Vital Signs Temp 97.7 F 12/20/23 10:55 Pulse 98 12/20/23 10:55 Resp 22 H 12/20/23 10:55 BP 149/79 H 12/20/23 10:55 Pulse Ox 95 12/20/23 10:55 O2 Del Method Room Air 12/20/23 10:55 BMI result Body Mass Index 43.9 Appearing in no acute distress lung sounds rales heart regular rate rhythm, clear S1, S2, LE edema positive bowel sounds, abdomen is soft, nontender neuro patient is alert x3, no focal deficits Objective Data Active Medications Acetaminophen (Acetaminophen 325 Mg Tablet) 650 mg PO Q6H PRN PRN Reason: Pain, Mild (Pain Scale 1-3), fever or headache Calcium Carbonate (Calcium Carbonate 750 Mg Tab.Chew) 750 mg PO Q4H PRN PRN Reason: Heartburn Furosemide (Furosemide 40 Mg/4 Ml Vial) 40 mg IVPUSH DAILY [facility]; Protocol Last Admin: 12/20/23 10:56 Dose: 40 mg Documented By: AMANDA Losartan Potassium (Losartan Potassium 25 Mg Tablet) 25 mg PO DAILY [facility]; Protocol Last Admin: 12/20/23 10:57 Dose: 25 mg Documented By: AMANDA Magnesium Hydroxide (Milk Of Magnesia 30 Ml Oral.Susp) 30 ml PO DAILY PRN PRN Reason: Constipation Melatonin (Melatonin 3 Mg Tablet) 6 mg PO BEDTIME PRN PRN Reason: Insomnia Metoprolol Tartrate (Metoprolol Tartrate 100 Mg Tablet) 100 mg PO BID [facility]; Protocol Last Admin: 12/20/23 10:57 Dose: 100 mg Documented By: AMANDA Sodium Chloride (0.9 % Sodium Chloride Flush 3 Ml Syringe) 3 ml IVFLUSH QSHIFT [facility] Last Admin: 12/20/23 10:57 Dose: 3 ml Documented By: AMANDA Labs 12/19/23 15:23 12/20/23 07:46 Labs: Laboratory Results - last 24 hr 12/19/23 12/19/23 12/20/23 15:23 15:54 07:46 MCV 90.7 MCH 30.0 MCHC 33.1 RDW 15.0 Plt Count 159 L MPV 12.6 H Immature Gran % (Auto) 0.4 Neut % (Auto) 73.5 H Lymph % (Auto) 14.4 L [place] % (Auto) 10.3 Eos % (Auto) 0.5 Baso % (Auto) 0.9 Lymph # (Auto) 1.3 [place] # (Auto) 0.9 Eos # (Auto) 0.1 Baso # (Auto) 0.1 Abs Immat Gran (auto) 0.04 H Absolute Neuts (auto) 6.7 Absolute Nucleated RBC 0.000 Nucleated RBC % (auto) 0.0 PT 22.9 H INR 2.0 H APTT 35.8 Anion Gap 12 13 Estim Creat Clear Calc 58.6 62.3 Estimated GFR > 60 > 60 Random Glucose 136 H 119 H Calcium 8.9 8.9 Magnesium 2.0 Total Bilirubin 3.9 H AST 29 ALT 21 Alkaline Phosphatase 61 Troponin I High Sens 7.5 D B-Natriuretic Peptide 1062 H 790 H Total Protein 5.8 L Albumin 3.4 L Urine Color Yellow Urine Appearance Clear Urine pH 6.0 Ur Specific [place] 1.010 Urine Protein 30 (1+) H Urine Glucose (UA) Negative Urine Ketones Negative Urine Blood Negative Urine Nitrite Negative Ur Leukocyte Esterase Negative Urine RBC 0-2 Urine WBC 0-5 Ur Squamous Epith Cells 3-5 Urine Bacteria None Seen Hyaline Casts 0-2 Influenza Type A (PCR) NEGATIVE Influenza Type B (PCR) NEGATIVE RSV RNA Qual (PCR) NEGATIVE SARS-CoV-2 RNA (RT-PCR) NEGATIVE Assessment and Plan (1) Atrial fibrillation by electrocardiogram: Status: Acute (2) Acute CHF: Status: Acute Plan 83 y/o F with multiple comorbidities including hypertension, chronic AFib, history of syncopal episode recently, osteoarthritis-comes with possible CHF exacerbation. Heart failure with preserved ejection fraction, acute Echo showing EF of 53% with basal inferior lateral segment hypokinesis, severe biatrial enlargement Short of breath, elevated BNP, trop x2 negative, EKG AFib with RVR Monitor I&O Daily weights BNP 790 Cardiology evaluation>continue IV lasix Uncontrolled hypertension Continue beta-katerina and losartan. Chronic AFib with RVR Heart rate is around 100 maximum Continue home metoprolol dose. Continue Eliquis once reconciled Morbid obesity Patient was encouraged to lose weight and cutdown calories. DVT prophylaxis with Eliquis full code Quality Stroke Does the patient have a stroke diagnosis?: No VTE Prior VTE?: No VTE Risk Level:: Medical - low VTE Device Contraindication: Patient Refused VTE Drug Contraindication: Patient Refused
--- NOTE | 2023-12-20 12:00 | MHC.CM.PN ---
Addendum entered by Melody Dumont RN 12/20/23 12:06: MYRA REPORTS MEDICARE TOLD HER SHE NEEDS TO CONTACT SOCIAL SECURITY BEFORE PT'S MEDICARE WILL CHANGE TO NON ME MEDICARE, REFERRAL PLACED TO [facility] [place] TO DETERMINE IF THEY CAN ASSIST W/CHANGING HER MEDICAID. Original Note: IMM 12/20/23, PT W/AFIB/HTN, CM MET W/PT AND DTR VIA TIN WORKER, PT'S DTR ROBB ANSWERED ALL QUESTIONS PT WAS PREOCUPPIED, MYRA REPORTS PT HAS A CANE AT HOME AND IS INTERESTED IN GETTING PT A WALKER AND SHOWER CHAIR SHE LEFT THOSE ITEMS IN [place], CM WILL GIVE DTR INFOR ON FREE [employer] DME FREE [employer] AND [facility] CONTACT #. MYRA REPORTED SHE BROUGHT PT FROM ME AFTER SHE WAS IN THE HOSPITAL, MYRA REPORTS PT HAS A BEDROOM ON FIRST FLOOR PT ISN'T REALLY ABLE TO DO STAIRS. PT EDUCATED ON AND COMPLETED A HCP NAMING HER DTR MYRA VANN [phone] HER [facility] AND NO ALTERNATE CHOSEN AT THIS TIME, COPY UPLOADED TO [facility] AND PLACED IN CHART.
[2023-12-20] MEDS: Apixaban 5 MG TABLET PO ×2 (12:10→21:34)
[2023-12-21 06:00] VITALS: BMI 32.2
[2023-12-21 07:34] LABS: B Type Natriuretic Peptide 696 pg/mL (<100)
[2023-12-21 07:38] VITALS: BP 146/90; PULSE 91; RESP 18; TEMP 36; O2SAT 93
[2023-12-21 07:44] LABS: Anion Gap 12 (12-20)
[2023-12-21 07:46] LABS: Blood Urea Nitrogen 13 mg/dL (9-16); Calcium 9.4 mg/dL (8.4-10.2); Carbon Dioxide 35 mmol/L (22-29); Chloride 102 mmol/L (96-108); Estimated Glomerular Filt Rate > 60; Glucose Random 130 mg/dL (60-115); Potassium 4.1 mmol/L (3.3-5.1); Sodium 145 mmol/L (135-145)
[2023-12-21] MEDS: Losartan Potassium 50 MG TABLET PO (09:31)
[2023-12-21] MEDS: Apixaban 5 MG TABLET PO ×2 (09:31→21:18)
[2023-12-21] MEDS: Metoprolol Tartrate 100 MG TABLET PO ×2 (09:31→21:08)
[2023-12-21] MEDS: Furosemide 40 MG/4 ML VIAL IVPUSH (09:32)
[2023-12-21] MEDS: 0.9 % Sodium Chloride Flush 3 ML SYRINGE IVFLUSH (09:33)
--- NOTE | 2023-12-21 10:26 | PM.PNCARD ---
Subjective Subjective Date of Service: 12/21/23 Interval history: She states that she feels better. Shortness of breath is improved. Otherwise, doing okay. Review of Systems Review of Systems Yes all other systems are reviewed and are negative Constitutional: Reports as per HPI and Reports no additional constitutional complaints Eyes: Reports as per HPI and Denies no additional eye complaints Denies system reviewed and no additional complaints, except as documented and Reports as per HPI Cardiovascular: Reports as per HPI, Reports no additional cardiovascular complaints, Denies acrocyanosis, Denies cool extremities, Denies chest pain, Reports leg edema, Denies lightheadedness, Denies palpitations and Reports dyspnea Respiratory: Reports as per HPI, Denies no additional respiratory complaints and Reports dyspnea Gastrointestinal: Reports as per HPI and Denies no additional gastrointestinal complaints Genitourinary: Reports as per HPI Musculoskeletal: Reports no additional musculoskeletal complaints and Reports as per HPI Skin/Breast: Reports system reviewed and no additional complaints, except as docu Reports system reviewed and no additional complaints, except as documented and Reports as per HPI Psychiatric: Reports no additional psychiatric complaints and Reports as per HPI Endocrine: Reports no additional endocrine complaints, Reports as per HPI and Denies palpitations Hematologic/Lymphatic: Reports no additional hematologic/lymphatic complaints and Reports as per HPI Allergic/Immunologic: Reports no additional allergic/immunologic complaints and Reports as per HPI Physical Exam Vital Signs: Last Vital Signs Temp 96.8 F 12/21/23 07:38 Pulse 91 12/21/23 07:38 Resp 18 12/21/23 07:38 BP 146/90 H 12/21/23 07:38 Pulse Ox 93 12/21/23 07:38 O2 Del Method Room Air 12/21/23 07:38 O2 Flow Rate 2 12/20/23 19:20 BMI result Body Mass Index 32.2 Const General: comfortable and no acute distress Orientation/consciousness: patient oriented x3 HEENT Other: Unremarkable Head: Yes normal to inspection Neck Neck: Yes normal visual inspection Chest Chest palpation & inspection: normal inspection of the chest Resp Auscultation: crackles and rhonchi Cardio Palpation: normal PMI Heart sounds: S1 normal heart sound present, S2 normal heart sound present, no gallops, no murmurs and no rubs GI Palpation (GI): Soft to palpation Back/Spine/Pelvis Other: unremarkable Skin General skin exam: no rashes or lesions noted Neuro General: patient oriented x3 Extrem General: Yes normal to inspection Psych Mental Status: mental status grossly normal Objective Labs and Meds 12/19/23 15:23 12/21/23 06:25 Lab results: Laboratory Results - last 24 hr 12/21/23 06:25 Sodium 145 Potassium 4.1 D Chloride 102 Carbon Dioxide 35 H Anion Gap 12 BUN 13 Creatinine 0.82 Estim Creat Clear Calc 50.0 Estimated GFR > 60 Random Glucose 130 H Calcium 9.4 B-Natriuretic Peptide 696 H Progress Note: A&P Assessment and plan (1) Acute CHF: Status: Acute Assessment and Plan: Troponins within range. Cardiac BNP elevated. Chest x-ray is also supportive of congestive heart failure. In the echocardiogram, LVEF 53%. Basal inferior hypokinesis. IV diuretics. Consider ischemia workup as an outpatient. (2) Atrial fibrillation by electrocardiogram: Status: Acute Assessment and Plan: Ventricular rate is slightly fast at about 100-110/Min. On beta-blockers. Add digoxin. (3) Hypertensive urgency: Status: Acute Assessment and Plan: Blood pressure is better but still not ideal. On beta-blockers, losartan and some hydralazine. May stop the hydralazine and just use a higher dose of losartan. Plan d/w . Time Spent With Patient Time: Total time managing care of this patient today ____ minutes. Progress Note: Quality Stroke Does the patient have a stroke diagnosis?: No Procedures Date of Service Date of Service: 12/21/23
[2023-12-21] MEDS: Digoxin 0.125 MG TABLET PO (10:48)
[2023-12-21 11:47] VITALS: BP 153/80; PULSE 89; RESP 18; TEMP 36.1; O2SAT 96
--- NOTE | 2023-12-21 13:34 | HO.PM.IMPN ---
Subjective Subjective Date of Service: 12/21/23 Interval History: Being followed for hypertension and atrial fibrillation with rvr Feeling better this morning awake alert answering questions appropriately denies chest pain, no shortness of breath, no pain noted to have persistent elevated blood pressure and heart rate, no acute events overnight. Review of Systems All other system reviewed and are negative. Physical Exam Vital Signs: Vital Signs: Last Vital Signs Temp 96.9 F 12/21/23 11:47 Pulse 89 12/21/23 11:47 Resp 18 12/21/23 11:47 BP 153/80 H 12/21/23 11:47 Pulse Ox 96 12/21/23 11:47 O2 Del Method Room Air 12/21/23 11:47 O2 Flow Rate 2 12/20/23 19:20 BMI result Body Mass Index 32.2 Const: Other: General in no acute distress. Neck no JVD. CVS irregular rate rhythm, Respiratory lungs clear to auscultation, no respiratory distress, no wheeze, no rhonchi. Gastrointestinal abdomen soft, non tender, bowel sounds audible, Extremities no edema. Neuro non focal Skin no rash Psych appropriate affect Objective Data Active Medications Acetaminophen (Acetaminophen 325 Mg Tablet) 650 mg PO Q6H PRN PRN Reason: Pain, Mild (Pain Scale 1-3), fever or headache Apixaban (Apixaban 5 Mg Tablet) 5 mg PO BID [facility] Last Admin: 12/21/23 09:31 Dose: 5 mg Documented By: YOSELYN Calcium Carbonate (Calcium Carbonate 750 Mg Tab.Chew) 750 mg PO Q4H PRN PRN Reason: Heartburn Digoxin (Digoxin 0.125 Mg Tablet) 0.125 mg PO DAILY [facility]; Protocol Last Admin: 12/21/23 10:48 Dose: 0.125 mg Documented By: YOSELYN Furosemide (Furosemide 40 Mg/4 Ml Vial) 40 mg IVPUSH DAILY [facility]; Protocol Last Admin: 12/21/23 09:32 Dose: 40 mg Documented By: YOSELYN Losartan Potassium (Losartan Potassium 50 Mg Tablet) 100 mg PO DAILY [facility]; Protocol Magnesium Hydroxide (Milk Of Magnesia 30 Ml Oral.Susp) 30 ml PO DAILY PRN PRN Reason: Constipation Melatonin (Melatonin 3 Mg Tablet) 6 mg PO BEDTIME PRN PRN Reason: Insomnia Metoprolol Tartrate (Metoprolol Tartrate 100 Mg Tablet) 100 mg PO BID [facility]; Protocol Last Admin: 12/21/23 09:31 Dose: 100 mg Documented By: YOSELYN Sodium Chloride (0.9 % Sodium Chloride Flush 3 Ml Syringe) 3 ml IVFLUSH QSHIFT [facility] Last Admin: 12/21/23 09:33 Dose: 3 ml Documented By: YOSELYN Labs 12/19/23 15:23 12/21/23 06:25 Labs: Laboratory Results - last 24 hr 12/21/23 06:25 Anion Gap 12 Estim Creat Clear Calc 50.0 Estimated GFR > 60 Random Glucose 130 H Calcium 9.4 B-Natriuretic Peptide 696 H Assessment and Plan (1) Hypertensive urgency: Status: Acute (2) Atrial fibrillation by electrocardiogram: Status: Acute (3) Acute CHF: Status: Acute Plan 83 y/o F with multiple comorbidities including hypertension, chronic AFib, history of syncopal episode recently, osteoarthritis-comes with possible CHF exacerbation. acute Heart failure with preserved ejection fraction, feels better/Short of breath resolved > 3L neg Echo showing EF of 53% with basal inferior lateral segment hypokinesis, severe biatrial enlargement elevated BNP 1062 improved to 696, trop x2 negative, EKG AFib with RVR Monitor I&O, BMP/BNP Daily weights Case discussed with Cardiology they recommend to continue current treatment Uncontrolled hypertension Continue beta-katerina and increase dose of losartan , DC hydralazine. Chronic AFib with RVR Heart rate around 100 Continue home metoprolol dose, add digoxin. Continue Eliquis Morbid obesity Patient was encouraged to lose weight/follow low calories DVT prophylaxis with Eliquis full code In my clinical judgment patient requires continued inpatient hospitalization for management of AFib RVR uncontrolled hypertension and acute CHF treatment can not be provided in less acute setting. Quality Stroke Does the patient have a stroke diagnosis?: No VTE Prior VTE?: No VTE Risk Level:: Medical - low VTE Device Contraindication: Patient Refused VTE Drug Contraindication: Patient Refused
[2023-12-21 15:58] VITALS: BP 145/80; PULSE 84; RESP 20; TEMP 36.8; O2SAT 91
[2023-12-21 20:00] VITALS: BP 130/83; PULSE 92; RESP 16; TEMP 36; O2SAT 97
[2023-12-21 21:08] VITALS: BP 130/83; PULSE 85
[2023-12-21 23:43] VITALS: BP 154/94; PULSE 84; RESP 20; TEMP 37; O2SAT 96
[2023-12-22 04:00] VITALS: BP 146/87; PULSE 83; RESP 20; TEMP 36.3; O2SAT 92
[2023-12-22 06:00] VITALS: BMI 36.2
[2023-12-22 07:14] LABS: Anion Gap 11 (12-20); Blood Urea Nitrogen 14 mg/dL (9-16); Calcium 8.9 mg/dL (8.4-10.2); Carbon Dioxide 37 mmol/L (22-29); Chloride 101 mmol/L (96-108); Creatinine Clr Calc Pharmacy 55.8; Estimated Glomerular Filt Rate > 60; Glucose Random 96 mg/dL (60-115); Potassium 3.5 mmol/L (3.3-5.1); Sodium 145 mmol/L (135-145)
[2023-12-22 07:20] LABS: B Type Natriuretic Peptide 429 pg/mL (<100)
[2023-12-22 07:27] VITALS: BP 145/89; PULSE 87; RESP 18; TEMP 36.6; O2SAT 96
[2023-12-22] MEDS: Digoxin 0.125 MG TABLET PO (08:48)
[2023-12-22] MEDS: Losartan Potassium 50 MG TABLET 100 MG PO (08:48)
[2023-12-22] MEDS: Apixaban 5 MG TABLET PO (08:48)
[2023-12-22] MEDS: Furosemide 40 MG/4 ML VIAL IVPUSH (08:48)
[2023-12-22] MEDS: Metoprolol Tartrate 100 MG TABLET PO (08:48)
[2023-12-22] MEDS: 0.9 % Sodium Chloride Flush 3 ML SYRINGE IVFLUSH ×2 (08:48)
--- NOTE | 2023-12-22 09:42 | PM.PNCARD ---
Subjective Subjective Date of Service: 12/22/23 Interval history: She states that she feels fine. No specific concerns. Breathing is better. Discussed with patient using rewinder operator. Review of Systems Review of Systems Yes all other systems are reviewed and are negative Constitutional: Reports as per HPI and Reports no additional constitutional complaints Eyes: Reports as per HPI and Denies no additional eye complaints Denies system reviewed and no additional complaints, except as documented and Reports as per HPI Cardiovascular: Reports as per HPI, Reports no additional cardiovascular complaints, Denies acrocyanosis, Denies cool extremities, Denies chest pain, Denies leg edema, Denies lightheadedness, Denies palpitations and Denies dyspnea Respiratory: Reports as per HPI, Denies no additional respiratory complaints and Denies dyspnea Gastrointestinal: Reports as per HPI and Denies no additional gastrointestinal complaints Genitourinary: Reports as per HPI Musculoskeletal: Reports no additional musculoskeletal complaints and Reports as per HPI Skin/Breast: Reports system reviewed and no additional complaints, except as docu Reports system reviewed and no additional complaints, except as documented and Reports as per HPI Psychiatric: Reports no additional psychiatric complaints and Reports as per HPI Endocrine: Reports no additional endocrine complaints, Reports as per HPI and Denies palpitations Hematologic/Lymphatic: Reports no additional hematologic/lymphatic complaints and Reports as per HPI Allergic/Immunologic: Reports no additional allergic/immunologic complaints and Reports as per HPI Physical Exam Vital Signs: Last Vital Signs Temp 97.8 F 12/22/23 07:27 Pulse 87 12/22/23 07:27 Resp 18 12/22/23 07:27 BP 145/89 H 12/22/23 07:27 Pulse Ox 96 12/22/23 07:27 O2 Del Method Room Air 12/22/23 07:27 O2 Flow Rate 2 12/20/23 19:20 BMI result Body Mass Index 36.2 Const General: comfortable and no acute distress Orientation/consciousness: patient oriented x3 HEENT Other: Unremarkable Head: Yes normal to inspection Neck Neck: Yes normal visual inspection Chest Chest palpation & inspection: normal inspection of the chest Resp Auscultation: crackles and rhonchi Cardio Palpation: normal PMI Heart sounds: S1 normal heart sound present, S2 normal heart sound present, no gallops, no murmurs and no rubs GI Palpation (GI): Soft to palpation Back/Spine/Pelvis Other: unremarkable Skin General skin exam: no rashes or lesions noted Neuro General: patient oriented x3 Extrem General: Yes normal to inspection Psych Mental Status: mental status grossly normal Objective Labs and Meds 12/19/23 15:23 12/22/23 06:06 Lab results: Laboratory Results - last 24 hr 12/22/23 06:06 Sodium 145 Potassium 3.5 Chloride 101 Carbon Dioxide 37 H Anion Gap 11 L BUN 14 Creatinine 0.78 Estim Creat Clear Calc 55.8 Estimated GFR > 60 Random Glucose 96 Calcium 8.9 B-Natriuretic Peptide 429 H Progress Note: A&P Assessment and plan (1) Acute CHF: Status: Acute Assessment and Plan: Troponins within range. Cardiac BNP elevated. Chest x-ray is also supportive of congestive heart failure. In the echocardiogram, LVEF 53%. Basal inferior hypokinesis. Can change diuretics to p.o.. Ischemia workup with possibly stress testing as an outpatient. (2) Atrial fibrillation by electrocardiogram: Status: Acute Assessment and Plan: Ventricular rate seems better control. On beta-blockers and digoxin. Also on Eliquis. (3) Hypertensive urgency: Status: Acute Assessment and Plan: Blood pressure seems better than on arrival. On metoprolol, losartan. Further adjustment as an outpatient. Plan Total time spent including review of data, counseling, documentation, coordination of care-41 minutes. d/w . Time Spent With Patient Time: Total time managing care of this patient today ____ minutes. Progress Note: Quality Stroke Does the patient have a stroke diagnosis?: No Procedures Date of Service Date of Service: 12/22/23
[2023-12-22 10:49] VITALS: BP 129/74; PULSE 86; RESP 18; TEMP 36.1; O2SAT 96
--- NOTE | 2023-12-22 11:12 | P.DS_ITS ---
DS: Providers Provider Date of Service: 12/22/23 Date of admission: 12/19/23 17:12 Primary care physician: Unknown Physician Consults: 12/19/23 17:15 Consult to Cardiology Routine Consulting Provider: [facility] Reason for consultation: Chf Has provider been notified: No DS: Diagnosis Discharge Diagnosis (1) Hypertensive urgency: Status: Acute (2) Atrial fibrillation by electrocardiogram: Status: Acute (3) Acute CHF: Status: Acute DS: Summary Hospital Course Hospital Course: History of presenting illness Date of Service: 12/19/23 Attending physician on admission: Star Chávez Chief Complaint: chf 83 y/o F with multiple comorbidities including hypertension, chronic AFib, history of syncopal episode recently, osteoarthritis-she recently moved from [place] to visit her daughter and subsequently did not decide to go back. She is having progressive shortness of breath for few weeks, leg edema, did not check her weight, she says she does not restrict her diet or hydration, neither she takes her weights. Patient says that from last couple of weeks it is becoming very difficult to lie flat, using multiple pillows, wake up in the night to catch breathing sometime. In addition to that patient says she has dizziness-for which? Unclear reason she was started on losartan in [place], she said she ran out of it. Denies any fever or chills or chest pain or palpitations or cough. Labs grider-CBC fine mild thrombocytopenia. BMP: Seems fine. Bilirubin is 3.9 BNP is 1062 Chest x-ray:Cardiomegaly with equivocal mild pulmonary vascular congestion and small bilateral pleural effusions. Possible infiltrate left lung base. EKG: AFib with RVR rate of 99 around Patient was given IV Lasix and requested admission for CHF exacerbation. Hospital course: 83 y/o F with multiple comorbidities including hypertension, chronic AFib, history of syncopal episode recently, osteoarthritis-comes with shortness of breath and leg edema of few weeks' duration, patient noncompliant with her antihypertensive medications patient admitted to [facility] with a diagnosis of. Acute Heart failure with hypertensive urgency, atrial fibrillation with RVR treated with IV Lasix, antihypertensives ,Echo showed EF of 53%,basal inferior lateral segment hypokinesis, severe biatrial enlargement,elevated BNP 1062 improved to 429, trop x2 negative, EKG AFib with RVR, patient was followed closely by real estate site analyst Dr. Balderas patient responded well to diuretics, losartan 100 mg and metoprolol, digoxin low-dose was added for better heart rate control, patient was continued on Eliquis, dose was increased from 2.5 mg b.i.d. to 5 mg b.i.d. due to patient's weight and normal renal function, since now patient is hemodynamically stable, with good blood pressure control, has no hypoxia ,therefore she is being discharged home on losartan 100 mg, metoprolol 100 mg b.i.d., digoxin 0.125 mg daily and Lasix 20 mg daily she is recommend outpatient follow-up with Cardiology for further med adjustment. In regard to obesity class 2 she is recommended to follow low-calorie diet. Time Attestation Discharge Coordination Time (in mins): 34 Quality: Safe Use of Opioids Does Pt have an Active Cancer Diagnosis on the Problem List?: No Quality: Stroke Does the patient have a stroke diagnosis?: No Physical Exam Vital Signs: Vital Signs: Last Vital Signs Temp 96.9 F 12/22/23 10:49 Pulse 86 12/22/23 10:49 Resp 18 12/22/23 10:49 BP 129/74 12/22/23 10:49 Pulse Ox 96 12/22/23 10:49 O2 Del Method Room Air 12/22/23 10:49 O2 Flow Rate 2 12/20/23 19:20 BMI result Body Mass Index 36.2 Const: Other: General in no acute distress. Neck no JVD. CVS irregular rate rhythm, Respiratory lungs clear to auscultation, no respiratory distress, no wheeze, no rhonchi. Gastrointestinal abdomen soft, non tender, bowel sounds audible, Extremities no edema. Neuro non focal Skin no rash Psych appropriate affect DS: Data Data Completed and Pending Labs on day of discharge: Laboratory Results - last 24 hr 12/22/23 06:06 Sodium 145 Potassium 3.5 Chloride 101 Carbon Dioxide 37 H Anion Gap 11 L BUN 14 Creatinine 0.78 Estim Creat Clear Calc 55.8 Estimated GFR > 60 Random Glucose 96 Calcium 8.9 B-Natriuretic Peptide 429 H Discharge Plan Discharge Anticipated Discharge Date/Time: 12/22/23 11:04 Patient Disposition: Home, Self-Care Discharge Diagnosis: Acute heart failure with preserved EF Chronic AFib with RVR Hypertensive urgency Referrals: Physician,Unknown J [Primary Care Provider] - 1 Week Discharge Medications: New digoxin 125 mcg (0.125 mg) Tablet 0.125 mg PO DAILY Qty: 30 0RF Protocol: Hold for HR <: HOLD for HR < : 60 furosemide 20 mg Tablet 20 mg PO DAILY Qty: 30 0RF Protocol: Hold for SBP< HOLD for SBP < : 90 Continued metoprolol succinate 100 mg Tablet Extended Release 24 Hr 100 mg PO BID losartan 100 mg Tablet 100 mg PO DAILY Changed Eliquis 5 mg Tablet 5 mg PO BID Qty: 60 0RF Discontinued hydralazine 25 mg Tablet 25 mg PO DAILY Discharge Orders: Discharge Order (Routine); Ordered 12/22/23 Ordered By: Singh Ureña Diet: Low salt diet Activity on Discharge: As tolerated Stand Alone Forms: Patient Portal Discharge page Print Language: Chadian Care Plan Goals: Hypertensive urgency resolved continue metoprolol, losartan Congestive heart failure resolved take Lasix 20 mg daily Atrial fibrillation continue metoprolol and digoxin 0.125 mg added for better heart rate control Dose of Eliquis increased to 5 mg 1 tablet b.i.d. Health Concerns: Hypertension Plan of Treatment: Outpatient follow-up with primary care physician call for appointment Outpatient follow-up with real estate site analyst Dr. Balderas. Assessment: As above
--- NOTE | 2023-12-22 11:16 | MHC.CM.PN ---
Pt has been medically cleared for DC, she will go home via family transport, and family will take care of her.
== END 2023-12-22 13:04 | disposition home or self-care (01) | DRG 291 ==
LOC: HO.ED 16:38 → HO.EDOVER 17:20 → HO.IMC 19:12
PROVIDERS: Nurse Practitioner Acute Care; Physician Assistant Medical; Admitting Provider Internal Medicine; Emergency Provider Emergency Medicine; Visit Provider Hospitalist
DX: I11.0 Hypertensive heart disease with heart failure (principal); I50.31 Acute diastolic (congestive) heart failure; I48.20 Chronic atrial fibrillation, unspecified; E66.01 Morbid (severe) obesity due to excess calories; I16.0 Hypertensive urgency; Z68.36 Body mass index [BMI] 36.0-36.9, adult; Z20.822 Contact with and (suspected) exposure to COVID-19; Z87.891 Personal history of nicotine dependence; Z79.01 Long term (current) use of anticoagulants; Z79.899 Other long term (current) drug therapy
CPT/HCPCS: 0241U; 36415; 71045; 80048; 80053; 81001; 81003; 83735; 83880; 84484; 85025; 85610; 85730; 93005; 93306; 99285; J1940; Q9957

== ENCOUNTER 2023-12-19 17:12 | Outpatient (BNV) | payer MEDICARE, SELFPAY | END 2023-12-20 07:00 | PROVIDERS: Admitting Provider Internal Medicine; Emergency Provider Emergency Medicine; Visit Provider Internal Medicine | DX: I34.0 Nonrheumatic mitral (valve) insufficiency (principal); I36.1 Nonrheumatic tricuspid (valve) insufficiency; I42.2 Other hypertrophic cardiomyopathy; I27.20 Pulmonary hypertension, unspecified; I51.7 Cardiomegaly; I35.8 Other nonrheumatic aortic valve disorders | CPT/HCPCS: 93306 ==

== ENCOUNTER → 2023-12-19 17:12 | Outpatient (BNV) | payer MEDICARE, SELFPAY | PROVIDERS: Admitting Provider Internal Medicine; Emergency Provider Emergency Medicine; Visit Provider Internal Medicine | DX: I50.9 Heart failure, unspecified (principal); I48.91 Unspecified atrial fibrillation; I16.0 Hypertensive urgency | CPT/HCPCS: 99223; 99233 ==

== ENCOUNTER → 2023-12-19 17:12 | Outpatient (BNV) | payer MEDICARE, SELFPAY | PROVIDERS: Admitting Provider Internal Medicine; Emergency Provider Emergency Medicine; Visit Provider Internal Medicine | DX: I16.0 Hypertensive urgency (principal); I48.91 Unspecified atrial fibrillation; I50.9 Heart failure, unspecified | CPT/HCPCS: 99222; 99232; 99239 ==

== ENCOUNTER 2024-02-22 10:47 | Emergency (ER) | payer MEDICARE, SELFPAY ==
--- NOTE | ~2024-02-22 | XR_ITS ---
EXAMINATION: XR CHEST CLINICAL INFORMATION: L sided facial droop COMPARISON: Left-sided facial droop. TECHNIQUE: AP portable view of the chest was obtained. FINDINGS: There is cardiac enlargement. Aorta is quite tortuous and calcified. Mediastinal and hilar contours otherwise normal. Lungs are clear bilaterally. There are no consolidations, effusions, or pneumothoraces. There are [id number] degenerative changes in both shoulder joints and more advanced changes throughout the spine. No suspicious or acute bony abnormalities. Soft tissues appear normal. XR/XR chest 1V IMPRESSION: 1. No active pulmonary disease. 2. Cardiac enlargement with tortuous aorta. Electronically signed by: Good Mendez MD 02/22/2024 01:05 PM LAW
--- NOTE | ~2024-02-22 | CT_ITS ---
EXAMINATION: CT head/brain wo IV con (accession [id number]) CT cervical spine wo IV con (accession [id number]) CLINICAL INFORMATION: L facial droop, fall, pain COMPARISON: None TECHNIQUE: Separate noncontrast CT examinations of the head and cervical spine were performed. Coronal and sagittal reformats were obtained at the acquisition workstation. This CT examination was performed using dose optimization techniques as appropriate, variously including the following: * Automated exposure control * Adjustment of mA and/or kV according to patient size (this includes techniques or standardized protocols for targeted exams where dose is matched to indication/reason for exam; i.e. extremities or head) * Use of iterative reconstruction technique DLP: 1053 mGy-cm FINDINGS: HEAD: There is no evidence of acute intracranial hemorrhage or territorial infarction. Preciado to white matter differentiation is well preserved. No abnormal mass effect or midline shift is seen. No extra-axial fluid collections are identified. No hydrocephalus. Mineralization and the right basal ganglia. Proportional prominence of the ventricles and sulcal spaces is consistent with moderate volume loss. Patchy periventricular and deep white matter hypoattenuation is consistent with moderate small vessel ischemic changes. The cerebellar tonsils are well positioned. Soft tissue contusion in the left frontal scalp without underlying calvarial fracture. Mild hyperostosis frontalis interna. Bilateral lens extraction. The mastoid air cells and visualized portions of the paranasal sinuses are well aerated. Small volume cerumen in the bilateral external auditory canals. CERVICAL SPINE: No evidence of acute fracture or traumatic subluxation of the cervical spine. There is anatomic alignment of the vertebral bodies and posterior elements. Vertebral body heights and intervertebral disc spaces are maintained. Moderate to severe left-sided C3-C4 and mild left-sided C5-C6 and C6-C7 neural foraminal stenosis. Mild multilevel right-sided neural foraminal stenosis. Mild canal stenosis at the level of C6-C7 related to a posteriorly projecting disc. Moderate atlantodental spondylosis. The atlantoaxial and atlantooccipital articulations are intact. No prevertebral soft tissue swelling. There is no cervical lymphadenopathy. The visualized thyroid gland is unremarkable. The visualized lung apices are clear. CT/CT head/brain wo IV con IMPRESSION: 1. No acute intracranial pathology. 2. Soft tissue contusion in the left frontal scalp without underlying calvarial fracture. 3. No acute osseous abnormality within the cervical spine. Mild multilevel cervical spondylosis. Electronically signed by: Mary Kate Garcia DO 02/22/2024 03:57 PM LAW [facility]
--- NOTE | ~2024-02-22 | CT_ITS ---
EXAMINATION: CT head/brain wo IV con (accession [id number]) CT cervical spine wo IV con (accession [id number]) CLINICAL INFORMATION: L facial droop, fall, pain COMPARISON: None TECHNIQUE: Separate noncontrast CT examinations of the head and cervical spine were performed. Coronal and sagittal reformats were obtained at the acquisition workstation. This CT examination was performed using dose optimization techniques as appropriate, variously including the following: * Automated exposure control * Adjustment of mA and/or kV according to patient size (this includes techniques or standardized protocols for targeted exams where dose is matched to indication/reason for exam; i.e. extremities or head) * Use of iterative reconstruction technique DLP: 1053 mGy-cm FINDINGS: HEAD: There is no evidence of acute intracranial hemorrhage or territorial infarction. Preciado to white matter differentiation is well preserved. No abnormal mass effect or midline shift is seen. No extra-axial fluid collections are identified. No hydrocephalus. Mineralization and the right basal ganglia. Proportional prominence of the ventricles and sulcal spaces is consistent with moderate volume loss. Patchy periventricular and deep white matter hypoattenuation is consistent with moderate small vessel ischemic changes. The cerebellar tonsils are well positioned. Soft tissue contusion in the left frontal scalp without underlying calvarial fracture. Mild hyperostosis frontalis interna. Bilateral lens extraction. The mastoid air cells and visualized portions of the paranasal sinuses are well aerated. Small volume cerumen in the bilateral external auditory canals. CERVICAL SPINE: No evidence of acute fracture or traumatic subluxation of the cervical spine. There is anatomic alignment of the vertebral bodies and posterior elements. Vertebral body heights and intervertebral disc spaces are maintained. Moderate to severe left-sided C3-C4 and mild left-sided C5-C6 and C6-C7 neural foraminal stenosis. Mild multilevel right-sided neural foraminal stenosis. Mild canal stenosis at the level of C6-C7 related to a posteriorly projecting disc. Moderate atlantodental spondylosis. The atlantoaxial and atlantooccipital articulations are intact. No prevertebral soft tissue swelling. There is no cervical lymphadenopathy. The visualized thyroid gland is unremarkable. The visualized lung apices are clear. CT/CT cervical spine wo IV con IMPRESSION: 1. No acute intracranial pathology. 2. Soft tissue contusion in the left frontal scalp without underlying calvarial fracture. 3. No acute osseous abnormality within the cervical spine. Mild multilevel cervical spondylosis. Electronically signed by: Mary Kate Garcia DO 02/22/2024 03:57 PM LAW [place]
[2024-02-22 11:02] VITALS: BP 156/87; PULSE 93; RESP 16; TEMP 36.4; O2SAT 98; BMI 35.3
--- NOTE | 2024-02-22 11:17 | ED_ITS ---
HPI - General Adult General Chief complaint: Neck Pain/Injury Stated complaint: Headache, neck pain Time Seen by Provider: 02/22/24 12:21 Source: patient Mode of arrival: ambulatory Limitations: no limitations History of Present Illness ED Provider: Dr. Desiree Carney HPI narrative: Patient comes to the emergency room complaining of bilateral neck pain that has been present for 3 months. Patient states that 3 months ago, she had a fall and since then it has been hurting. Patient lives with her daughter. To the main complaint was in neck pain. However, in triage she was noted that patient has left-sided mouth droop. The patient's daughter states that she never thought much about it, but seems to be new, unclear how long it has been present. Patient does not think looks abnormal. However the patient's daughter states that it does not look normal but it is the 1st time that she noticed it since it was pointed out today. According to the patient's daughter, patient has history of AFib, takes Eliquis. However, due to insurance issues, patient was out of Eliquis for 4 days and restarted taking it yesterday. Patient denies any numbness tingling or paresthesias, no loss of motor function in upper or lower extremities. Related Data Home Medications ?Medication ?Instructions ?Recorded ?Confirmed losartan 100 mg tablet 100 mg PO DAILY 12/19/23 12/19/23 metoprolol succinate 100 mg 100 mg PO BID 12/19/23 12/19/23 tablet,extended release 24 hr Previous Rx's ?Medication ?Instructions ?Recorded apixaban 5 mg tablet (Eliquis) 5 mg PO BID #60 tabs 12/22/23 digoxin 125 mcg (0.125 mg) tablet 0.125 mg PO DAILY #30 tabs 12/22/23 furosemide 20 mg tablet 20 mg PO DAILY #30 tabs 12/22/23 cyclobenzaprine 5 mg tablet 5 mg PO TID PRN muscle spasm #10 02/22/24 tabs Allergies Allergy/AdvReac Type Severity Reaction Status Date / Time No Known Allergies Allergy Verified 02/22/24 11:04 Review of Systems 2 Review of Systems: Constitutional : No Weight loss, No Fever, No Chills, No Night Sweats, No Fatigue, No Malaise ENT/Mouth : No Hearing loss, No Ear Pain, No Nasal Congestion, No Sinus Pain, No Hoarseness, No sore throat, No Rhinorrhea, No Swallowing Difficulty Eyes: No Eye Pain, No Swelling, No Redness, No Foreign Body, No Discharge, No Vision Changes Cardiovascular : No Chest Pain, No SOB, No Dyspnea on Exertion, No Orthopnea, No Edema, No Palpitations Respiratory : No Cough, No Sputum, No Wheezing, No Smoke Exposure, No Dyspnea Gastrointestinal : No Nausea, No Vomiting, No Diarrhea, No Constipation, No abdominal Pain, No Hematochezia, No Melena Genitourinary : no irregular bleeding, No Dysuria, No Urinary Frequency, No Hematuria, No Urinary Incontinence, No Urgency, No Flank Pain, No Urinary Flow Changes, No Hesitancy Musculoskeletal : Complaining of bilateral neck pain posteriorly for 3 months, No Myalgias, No Joint Swelling Skin : No Skin Lesions, No rash Neuro : No Weakness, No Numbness, No Paresthesias, No Loss of Consciousness, No Dizziness, No Headache, noticed today left-sided mouth drooping, unclear when the onset was Psych : No Anxiety/Panic, No Depression, No SI/HI/AH/VH, No Social Issues, Heme/Lymph: No Bruising, No Bleeding,No Lymphadenopathy Endocrine : No Polyuria, No Polydipsia, No Temperature Intolerance PMFSH Past Medical History Medical History (Updated 02/22/24 @ 16:48 by Desiree Carney MD) Congestive heart failure (CHF) Afib HTN (hypertension) Family History Family History (Updated 12/20/23 @ 10:04 by Jimmie Balderas MD) Father No problems noted. Mother No problems noted. Social History Social History Household Members: Children Housing: House Do you presently have visiting nurse or other home services: No Alcohol intake: never Patient Tobacco Use Status: Former Tobacco user e-Cigarette/Vaping Use: Never Used Second Hand Smoke Exposure: No Advance Directives: Yes Advance Directives Information Provided: No Advance Directives on File: No service: No Physical Exam ED Vital Signs: Vital Signs - 24 hr 02/22/24 11:02 02/22/24 14:40 02/22/24 16:42 Temperature 97.5 F 99.1 F 99.8 F Pulse Rate 93 79 89 Respiratory Rate 16 16 13 Blood Pressure 156/87 H 164/105 H 175/100 H Pulse Oximetry 98 98 96 Oxygen Delivery Method Room Air Room Air Room Air BMI result Body Mass Index 35.3 Const Other: Appearance: Alert. Oriented X3. No acute distress. Eyes: Pupils equal, round and reactive to light. ENT: Pharynx normal. Neck: Normal inspection. Neck supple. No lymph nodes noted. No crepitus, mild tenderness to palpation bilateral sides of the neck CVS: Normal heart rate and rhythm. Pulses normal. Normal S1 and S2 Respiratory: No respiratory distress. Breath sounds normal. No Wheezing. No rales Abdomen: Soft and nontender. No rigidity. No distention. Skin: Skin warm and dry. Normal skin color. Normal skin turgor. Extremities: No lower extremity edema. No Lacerations. No Rash Neuro: Oriented X 3. No motor deficit. No sensory deficit. Moving all extremities. No slurred speech. CN 2 through 12 grossly intact. Patient has mild left-sided mouth droop Psych: calm, cooperative, normal affect NIH Stroke Scale Internal: Initial- Upon Arrival Level of Consciousness: Alert Level of Consciousness Questions: Answers both questions correctly Level of Consciousness Commands: Performs both tasks correctly Best Gaze: Partial gaze palsy Visual: No visual loss Facial Palsy: Normal Motor Arm (Right): No drift Motor Arm (Left): No drift Motor Leg (Right): No drift Motor Leg (Left): No drift Limb Ataxia: Absent Sensory: Normal Best Language: No aphasia Dysarthia: Normal Extinction and Inattention: No abnormality Score: 1 Course Course Course Narrative: This is a Rapid Medical Exam performed in triage by Camilla Moy PA-C. Full HPI, ROS and PE to be performed by primary ED provider. 83-year-old female with a past medical history AFib on Eliquis to the ED c/o headache, bilateral neck pain, and burning sensation to scalp when scratch since October. Daughter reports fall in October in [place] in which she was evaluated/admitted to the hospital for few days. Left-sided facial droop appreciated in triage, daughter agrees, unknown last known well. Denies recent falls, focal weakness PE: + left-sided facial droop. Ambulating with steady gait. Exam otherwise nonfocal Plan: EKG, labs, viral studies, UA, CXR, head CT Patient's NIH score is 0 for mild left-sided mouth droop. However, when patient smiles, she does have a symmetric smile. It is unclear when she had the onset of symptoms, patient has no other deficits, clear speech. Patient takes Eliquis. Patient is not a candidate for TNK -my interpretation of labs: Patient's hematology and chemistry and LFTs within normal limits. Urinalysis is a contaminant. 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 -CT scan and CTA do not show any acute abnormality. -patient does not have any rash that would explain the patient's scalp burning sensation -on physical exam, patient did have discomfort in both sides of the neck, pain likely musculoskeletal. -no evidence of cervical spine injury or stroke. Differential Diagnosis Differential Diagnoses: The differential diagnosis associated with the presentation includes (Shingles, CVA, TIA, musculoskeletal pain) Admission/Observation Consideration of admission/observation: Escalation of care including admission/observation considered (Given patient's symptoms, observation was considered) Lab Data [facility] Lab Attestation statement: I reviewed the patient's lab results. 02/22/24 11:46 02/22/24 11:46 Labs: Lab Results 02/22/24 Range/Units 11:46 WBC 6.3 (4.8-10.8) X10*3/uL RBC 5.48 D (4.20-5.50) X10*6/uL Hgb 16.0 (12.0-16.0) g/dl Hct 48.3 H (37.0-47.0) % MCV 88.1 (80.0-98.0) fL MCH 29.2 (27.0-33.0) pg MCHC 33.1 (31.0-35.0) g/dl RDW 14.6 (11.0-16.0) % Plt Count 201 D (160-400) X10*3/uL MPV 11.7 (9.4-12.3) fL Immature Gran % (Auto) 0.3 (0.0-0.4) % Neut % (Auto) 69.1 (45-73) % Lymph % (Auto) 18.4 L (20-40) % Griggs % (Auto) 10.2 (2-11) % Eos % (Auto) 1.4 (0-4) % Baso % (Auto) 0.6 (0-2) % Lymph # (Auto) 1.2 (1.2-4.9) X10*3/uL [place]gs # (Auto) 0.6 (0.1-1.2) X10*3/uL Eos # (Auto) 0.1 (0.0-0.4) X10*3/uL Baso # (Auto) 0.0 (0.0-0.2) X10*3/uL Abs Immat Gran (auto) 0.02 (0.00-0.03) X10*3/uL Absolute Neuts (auto) 4.3 (2.0-8.3) x10*3/uL Absolute Nucleated RBC 0.000 (0.0-0.012) X10*3/uL Nucleated RBC % (auto) 0.0 (0.0-0.2) /100WBC PT 15.3 H D (10.9-12.4) SEC INR 1.3 H (0.9-1.1) Sodium 142 (135-145) mmol/L Potassium 4.3 D (3.3-5.1) mmol/L Chloride 102 (96-108) mmol/L Carbon Dioxide 31 H (22-29) mmol/L Anion Gap 13 (12-20) BUN 11 (9-16) mg/dL Creatinine 0.83 (0.5-1.4) mg/dL Estim Creat Clear Calc 51.8 Estimated GFR > 60 Random Glucose 161 H (60-115) mg/dL Calcium 9.5 D (8.4-10.2) mg/dL Magnesium 2.1 (1.6-2.6) mg/dL Total Bilirubin 1.5 H (0.0-1.0) mg/dL Direct Bilirubin 0.4 (0.0-0.5) mg/dL AST 25 (5-31) U/L ALT 10 (0-31) U/L Alkaline Phosphatase 68 (39-117) U/L Total Protein 7.1 (6.5-8.0) g/dL Albumin 3.8 (3.5-5.0) g/dL Urine Color Yellow Urine Appearance Cloudy Urine pH 6.0 (5.0-9.0) Ur Specific [place] 1.015 (1.005-1.025) Urine Protein 30 (1+) H (Neg-Trace) mg/dL Urine Glucose (UA) Negative (Negative) mg/dL Urine Ketones Negative (Negative) mg/dL Urine Blood Negative (Negative) Urine Nitrite Negative (Negative) Ur Leukocyte Esterase Trace H (Negative) Urine RBC 0-2 (0-2) /HPF Urine WBC 11-20 H (0-5) /HPF Ur Squamous Epith Cells >20 (0-2) /HPF Urine Bacteria 4+ (None Seen) Hyaline Casts 0-2 (0-2) /LPF Influenza Type A (PCR) NEGATIVE (Negative) Influenza Type B (PCR) NEGATIVE (Negative) RSV RNA Qual (PCR) NEGATIVE (Negative) SARS-CoV-2 RNA (RT-PCR) NEGATIVE (Negative) Independent Interpretation I performed an independent interpretation of an: CT Scan Radiology Impression Discussion of test interpretation with radiology: I have reviewed the radiologist's reading. Radiologist Impression: HEAD: There is no evidence of acute intracranial hemorrhage or territorial infarction. Preciado to white matter differentiation is well preserved. No abnormal mass effect or midline shift is seen. No extra-axial fluid collections are identified. No hydrocephalus. Mineralization and the right basal ganglia. Proportional prominence of the ventricles and sulcal spaces is consistent with moderate volume loss. Patchy periventricular and deep white matter hypoattenuation is consistent with moderate small vessel ischemic changes. The cerebellar tonsils are well positioned. Soft tissue contusion in the left frontal scalp without underlying calvarial fracture. Mild hyperostosis frontalis interna. Bilateral lens extraction. The mastoid air cells and visualized portions of the paranasal sinuses are well aerated. Small volume cerumen in the bilateral external auditory canals. CERVICAL SPINE: No evidence of acute fracture or traumatic subluxation of the cervical spine. There is anatomic alignment of the vertebral bodies and posterior elements. Vertebral body heights and intervertebral disc spaces are maintained. Moderate to severe left-sided C3-C4 and mild left-sided C5-C6 and C6-C7 neural foraminal stenosis. Mild multilevel right-sided neural foraminal stenosis. Mild canal stenosis at the level of C6-C7 related to a posteriorly projecting disc. Moderate atlantodental spondylosis. The atlantoaxial and atlantooccipital articulations are intact. No prevertebral soft tissue swelling. There is no cervical lymphadenopathy. The visualized thyroid gland is unremarkable. The visualized lung apices are clear. CT/CT cervical spine wo IV con IMPRESSION: 1. No acute intracranial pathology. 2. Soft tissue contusion in the left frontal scalp without underlying calvarial fracture. 3. No acute osseous abnormality within the cervical spine. Mild multilevel cervical spondylosis. Independent Historian Clinical information obtained from an independent historian. History obtained from or confirmed by: Other (Patient's daughter) Critical Care Time Critical Care Time Critical Care Time: Yes Total Critical Care Time: 35 Attestation: I have personally provided critical care time. Time includes review of lab data, radiology results, discussion with consultants, and monitoring for potential decompensation. Intervention performed as documented. Discharge Plan Discharge Clinical Impression: Musculoskeletal neck pain Patient Disposition: Home, Self-Care Instructions: Chronic Neck Pain (DC) Additional Instructions: Please follow-up with your primary care physician tomorrow. If you have any worsening or new symptoms, please return to the emergency room or call 911 Prescriptions: New cyclobenzaprine 5 mg tablet 5 mg PO TID PRN (Reason: muscle spasm) Qty: 10 0RF No Action metoprolol succinate 100 mg Tablet Extended Release 24 Hr 100 mg PO BID losartan 100 mg Tablet 100 mg PO DAILY digoxin 125 mcg (0.125 mg) Tablet 0.125 mg PO DAILY Qty: 30 0RF Protocol: Hold for HR <: HOLD for HR < : 60 furosemide 20 mg Tablet 20 mg PO DAILY Qty: 30 0RF Protocol: Hold for SBP< HOLD for SBP < : 90 Eliquis 5 mg Tablet 5 mg PO BID Qty: 60 0RF Print Language: Bolivian
--- NOTE | 2024-02-22 11:22 | ECG_ITS ---
Test Reason : facial droop Blood Pressure : / mmHG Vent. Rate : 087 BPM Atrial Rate : 000 BPM P-R Int : 000 ms QRS Dur : 072 ms QT Int : 346 ms P-R-T Axes : 000 -06 -03 degrees QTc Int : 416 ms Atrial fibrillation Minimal voltage criteria for LVH, may be normal variant ( R in aVL ) Abnormal ECG When compared with ECG of 19-DEC-2023 14:40, No significant change was found Referred By: Camilla Moy Electronically Signed By:KRISTYN GARNER
[2024-02-22 11:51] LABS: MANUAL DIFF FLAG NO
[2024-02-22 11:53] LABS: Appearance Urine Cloudy; Color Urine Yellow; Glucose Urine UA Negative (Negative); Leukocyte Esterase Urine Trace (Negative); Nitrite Urine Negative (Negative); Specific Gravity - Urine 1.015 (1.005-1.025); UMIC TRIGGER UACC YES; Urine Blood Negative (Negative); Urine Ketones Negative (Negative); Urine Protein 30 (1+) mg/dL (Neg-Trace)
[2024-02-22 11:55] LABS: Basophils Percent Auto 0.6 % (0-2); Eosinophils Absolute Auto 0.1 X10*3/uL (0.0-0.4); Eosinophils Percent Auto 1.4 % (0-4); Hematocrit 48.3 % (37.0-47.0); Imm Gran Abs Auto 0.02 X10*3/uL (0.00-0.03); Imm Gran Pct Auto 0.3 % (0.0-0.4); Lymphocytes Absolute Auto 1.2 X10*3/uL (1.2-4.9); Lymphocytes Percent Auto 18.4 % (20-40); Mean Corpuscular HGB Conc 33.1 g/dl (31.0-35.0); Mean Corpuscular Hemoglobin 29.2 pg (27.0-33.0); Mean Corpuscular Volume 88.1 fL (80.0-98.0); Mean Platelet Volume 11.7 fL (9.4-12.3); Monocytes Absolute Auto 0.6 X10*3/uL (0.1-1.2); Monocytes Percent Auto 10.2 % (2-11); Neutrophils Absolute Auto 4.3 x10*3/uL (2.0-8.3); Neutrophils Percent Auto 69.1 % (45-73); Platelet Count 201 X10*3/uL (160-400); Red Blood Count 5.48 X10*6/uL (4.20-5.50); Red Cell Distribution Width 14.6 % (11.0-16.0); White Blood Count 6.3 X10*3/uL (4.8-10.8)
[2024-02-22 12:02] LABS: Bacteria Urine 4+ (None Seen); Hyaline Casts Urine 0-2 /LPF (0-2); RBC Urine 0-2 /HPF (0-2); Squamous Epithelial Cell Urine >20 /HPF (0-2); UACC Culture Trigger YES
--- NOTE | 2024-02-22 12:03 | PC.NURSE ---
patient noted to have left sided facial droop, weakened hand grasp on left side. ED provider aware. labs drawn and sent prior to coming into ED room 14. patient family at bedside states they are unsure when the droop stared because they didnt notice. patient pupils equal and reactive. patient had fall in october, states she has remaining neck pain and when she scratches her head she has pain/burning sensation. patient changed into gown, ambulates with [place], family states she seems slower today while ambulating
[2024-02-22 12:06] LABS: Alanine Aminotransferase 10 U/L (0-31); Albumin Level 3.8 g/dL (3.5-5.0); Alkaline Phosphatase 68 U/L (39-117); Anion Gap 13 (12-20); Aspartate Amino Transferase 25 U/L (5-31); Bilirubin Direct 0.4 mg/dL (0.0-0.5); Bilirubin Total 1.5 mg/dL (0.0-1.0); Blood Urea Nitrogen 11 mg/dL (9-16); Calcium 9.5 mg/dL (8.4-10.2); Carbon Dioxide 31 mmol/L (22-29); Chloride 102 mmol/L (96-108); Creatinine Clr Calc Pharmacy 51.8; Estimated Glomerular Filt Rate > 60; Glucose Random 161 mg/dL (60-115); INTERNATIONAL NORM RATIO 1.3 (0.9-1.1); Magnesium 2.1 mg/dL (1.6-2.6); Potassium 4.3 mmol/L (3.3-5.1); Prothrombin Time 15.3 SEC (10.9-12.4); Sodium 142 mmol/L (135-145); Total Protein 7.1 g/dL (6.5-8.0)
[2024-02-22 12:28] LABS: Influenza A PCR NEGATIVE (Negative); Influenza B PCR NEGATIVE (Negative); Resp Syncy Virus RNA Qual PCR NEGATIVE (Negative); SARS COV2 PCR INHOUSE NEGATIVE (Negative)
[2024-02-22 14:40] VITALS: BP 164/105; PULSE 79; RESP 16; TEMP 37.3; O2SAT 98
[2024-02-22 16:42] VITALS: BP 175/100; PULSE 89; RESP 13; TEMP 37.7; O2SAT 96
[2024-02-22 17:01] VITALS: BP 175/100; PULSE 89; RESP 13; TEMP 37.7; O2SAT 96
[2024-02-23 17:24] LABS: A. Phagocytphilium DNA,RT-PCR NOT DETECTED (NOT DETECTED); Babesia Microti DNA, RT-PCR NOT DETECTED (NOT DETECTED); Borrelia Miyamotoi,DNA RT-PCR NOT DETECTED (NOT DETECTED); E.Chaffeensis DNA RT-PCR NOT DETECTED (NOT DETECTED); Lyme(Borrelia ssp)DNA RT-PCR NOT DETECTED (NOT DETECTED)
[2024-02-24 18:43] LABS: Lyme Abs Screen <0.90 index
== END 2024-02-22 17:01 | disposition home or self-care (01) ==
PROVIDERS: Physician Assistant; Emergency Provider Emergency Medicine; PCP Internal Medicine
DX: M79.18 Myalgia, other site (principal); M54.2 Cervicalgia; R29.701 NIHSS score 1; Z03.818 Encounter for observation for suspected exposure to other biological agents ruled out; I48.91 Unspecified atrial fibrillation; I11.0 Hypertensive heart disease with heart failure; I50.9 Heart failure, unspecified; Z87.891 Personal history of nicotine dependence; Z79.01 Long term (current) use of anticoagulants; Z79.899 Other long term (current) drug therapy
CPT/HCPCS: 0241U; 70450; 71045; 72125; 80048; 80076; 81001; 83735; 85025; 85610; 86617; 86618; 87086; 87468; 87469; 87478; 87484; 87798; 93005; 99284

== ENCOUNTER → 2024-02-22 11:22 | Outpatient (BNV) | payer MEDICARE, SELFPAY | PROVIDERS: Emergency Provider Emergency Medicine; PCP Internal Medicine; Visit Provider Radiology Diagnostic Radiology | DX: I51.7 Cardiomegaly (principal) | CPT/HCPCS: 71045 ==

== ENCOUNTER → 2024-02-22 11:22 | Outpatient (BNV) | payer MEDICARE, SELFPAY | PROVIDERS: Emergency Provider Emergency Medicine; PCP Internal Medicine; Visit Provider Internal Medicine | DX: R94.31 Abnormal electrocardiogram [ECG] [EKG] (principal) | CPT/HCPCS: 93010 ==

== ENCOUNTER 2024-03-29 10:24 | Emergency (ER) | payer MEDICARE, MEDICAID, SELFPAY ==
--- NOTE | ~2024-03-29 | CT_ITS ---
EXAMINATION: CT brain and CT cervical spine without contrast. CLINICAL INDICATION: Head trauma. Neck pain. COMPARISON: CT brain 02/22/2024.. TECHNIQUE: 5 mm thin axial and reformatted 2 mm thin sagittal and coronal images of images of brain were obtained without contrast. 3 mm thin axial and reformatted 2 mm thin sagittal and coronal images of cervical spine were obtained. DLP 993.Automated exposure control - Adjustment of mA and/or kV according to patient size (this includes techniques or standardized protocols for targeted exams where dose is matched to indication/reason for exam; i.e. extremities or head) - Use of iterative reconstruction technique. FINDINGS: BRAIN: There is no acute intra-axial, extra-axial bleed, masses or midline shift. There is no acute infarction in evolution. There is no edema. The scott to white matter differentiation is maintained normal. The lateral ventricles are symmetrical in size and configuration but mildly enlarged. Bone windows reveal no calvarial abnormality. There is no scalp soft tissue abnormality. Cervical spine: There is normal cervical lordosis. The vertebral heights, alignment and disc heights are normal. There is calcified C4-5 disc. The craniovertebral junction and the C1-C2 alignment is normal. There is no visible acute fracture, dislocation or subluxation seen. There is mild posterior spondylosis left C3-4 disc level with facet joint arthropathy resulting in mild narrowing of left neural foramina. There is moderate left C3-4, C4-5, bilateral C5-6 and C6-7 facet joint hypertrophy and arthropathy. The prevertebral and paravertebral soft tissues are normal. The tracheal airway is widely patent. Thyroid lobes are symmetrical and normal. No neck mass or lymphadenopathy seen. 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 CT/CT cervical spine wo IV con IMPRESSION: No acute intracranial process seen. No acute fracture, dislocation or subluxation in cervical spine. Degenerative facet arthropathy as described above. Electronically signed by: Mike Charles MD 03/29/2024 12:56 PM EST
--- NOTE | ~2024-03-29 | XR_ITS ---
EXAMINATION: Lumbar spine, left knee and left hip. CLINICAL INDICATION: Fall, pain. COMPARISON: None. FINDINGS: Left knee 4 views. There is mild loss of tricompartment joint space most significant in the medial and patellofemoral compartments. No acute fracture, dislocation or subluxation seen. There is no loose bodies or joint effusion seen. AP pelvis and left hip 3 views: There is normal symmetry of bilateral hip joints and SI joints. No visible fracture involving the pelvic bone. The soft tissues are normal. Left hip 2 view: There is maintained left hip joint space. No visible acute fracture, dislocation or subluxation seen. No abnormal joint effusion seen. The soft tissues are normal. Lumbar spine: There is normal lumbar lordosis. There is grade 1 anterolisthesis L4 over L5. Rest the vertebral alignment is normal. There is no visible acute fracture, dislocation seen. There is mild loss of T12-L1, T11-12 disc heights with mild ventral spondylosis throughout lower dorsal and lumbar spine. No lytic or sclerotic process seen. XR/XR knee LT 4V IMPRESSION: Grade 1 anterolisthesis L4 over L5. No visible acute fracture, dislocation or subluxation seen. Unremarkable AP pelvis and left hip exam. Tricompartment degenerative changes left knee. No acute fracture, dislocation or subluxation seen. Electronically signed by: Mike Charles MD 03/29/2024 03:04 PM LAW
--- NOTE | ~2024-03-29 | XR_ITS ---
EXAMINATION: Lumbar spine, left knee and left hip. CLINICAL INDICATION: Fall, pain. COMPARISON: None. FINDINGS: Left knee 4 views. There is mild loss of tricompartment joint space most significant in the medial and patellofemoral compartments. No acute fracture, dislocation or subluxation seen. There is no loose bodies or joint effusion seen. AP pelvis and left hip 3 views: There is normal symmetry of bilateral hip joints and SI joints. No visible fracture involving the pelvic bone. The soft tissues are normal. Left hip 2 view: There is maintained left hip joint space. No visible acute fracture, dislocation or subluxation seen. No abnormal joint effusion seen. The soft tissues are normal. Lumbar spine: There is normal lumbar lordosis. There is grade 1 anterolisthesis L4 over L5. Rest the vertebral alignment is normal. There is no visible acute fracture, dislocation seen. There is mild loss of T12-L1, T11-12 disc heights with mild ventral spondylosis throughout lower dorsal and lumbar spine. No lytic or sclerotic process seen. XR/XR lumbar spine 2-3V IMPRESSION: Grade 1 anterolisthesis L4 over L5. No visible acute fracture, dislocation or subluxation seen. Unremarkable AP pelvis and left hip exam. Tricompartment degenerative changes left knee. No acute fracture, dislocation or subluxation seen. Electronically signed by: Mike Charles MD 03/29/2024 03:04 PM LAW
--- NOTE | ~2024-03-29 | XR_ITS ---
EXAMINATION: Lumbar spine, left knee and left hip. CLINICAL INDICATION: Fall, pain. COMPARISON: None. FINDINGS: Left knee 4 views. There is mild loss of tricompartment joint space most significant in the medial and patellofemoral compartments. No acute fracture, dislocation or subluxation seen. There is no loose bodies or joint effusion seen. AP pelvis and left hip 3 views: There is normal symmetry of bilateral hip joints and SI joints. No visible fracture involving the pelvic bone. The soft tissues are normal. Left hip 2 view: There is maintained left hip joint space. No visible acute fracture, dislocation or subluxation seen. No abnormal joint effusion seen. The soft tissues are normal. Lumbar spine: There is normal lumbar lordosis. There is grade 1 anterolisthesis L4 over L5. Rest the vertebral alignment is normal. There is no visible acute fracture, dislocation seen. There is mild loss of T12-L1, T11-12 disc heights with mild ventral spondylosis throughout lower dorsal and lumbar spine. No lytic or sclerotic process seen. XR/XR hip LT min 2V w/wo pel IMPRESSION: Grade 1 anterolisthesis L4 over L5. No visible acute fracture, dislocation or subluxation seen. Unremarkable AP pelvis and left hip exam. Tricompartment degenerative changes left knee. No acute fracture, dislocation or subluxation seen. Electronically signed by: Mike Charles MD 03/29/2024 03:04 PM LAW
[2024-03-29 10:39] VITALS: BP 157/101; PULSE 88; RESP 20; TEMP 36.6; O2SAT 97; BMI 35.8
--- NOTE | 2024-03-29 11:37 | ECG_ITS ---
Test Reason : WEAKNESS Blood Pressure : / mmHG Vent. Rate : 082 BPM Atrial Rate : 000 BPM P-R Int : 000 ms QRS Dur : 080 ms QT Int : 364 ms P-R-T Axes : 000 -02 001 degrees QTc Int : 425 ms Atrial fibrillation Minimal voltage criteria for LVH, may be normal variant ( R in aVL ) Abnormal ECG When compared with ECG of 22-FEB-2024 11:22, No significant change was found Referred By: Halley Huddleston Electronically Signed By:TRISTEN THORNE MD
--- NOTE | 2024-03-29 11:47 | PC.NURSE ---
Assumed care of this patient at 1100, patient resting quietly on stretcher w/ family at bedside. Labs/EKG/scans just ordered by provider will be completed.
--- NOTE | 2024-03-29 11:53 | ED_ITS ---
HPI - General Adult General Chief complaint: General Medical Stated complaint: fall, lightheaded Time Seen by Provider: 03/29/24 11:53 History of Present Illness ED Provider: Adrienne CORTEZ narrative: The patient is an 83-year-old female who lives at home. Today she was walking with her cane when she felt her left knee give out and she fell. She is complaining of pain primarily in her lower back, mostly on the left side and in her left hip and left knee. She has not sure whether she hit her head or not. She has a bit of a headache but this may be chronic. She has a history of atrial fibrillation and is on apixaban. Related Data Home Medications ?Medication ?Instructions ?Recorded ?Confirmed losartan 100 mg tablet 100 mg PO DAILY 12/19/23 12/19/23 metoprolol succinate 100 mg 100 mg PO BID 12/19/23 12/19/23 tablet,extended release 24 hr Previous Rx's ?Medication ?Instructions ?Recorded apixaban 5 mg tablet (Eliquis) 5 mg PO BID #60 tabs 12/22/23 digoxin 125 mcg (0.125 mg) tablet 0.125 mg PO DAILY #30 tabs 12/22/23 furosemide 20 mg tablet 20 mg PO DAILY #30 tabs 12/22/23 cyclobenzaprine 5 mg tablet 5 mg PO TID PRN muscle spasm #10 02/22/24 tabs walker #1 ea 03/29/24 Allergies Allergy/AdvReac Type Severity Reaction Status Date / Time No Known Allergies Allergy Verified 03/29/24 10:41 Review of Systems 2 Review of Systems: Yes all other systems are reviewed and are negative [facility] Past Medical History Medical History (Updated 03/30/24 @ 00:00 by Arminda Blackmon) Congestive heart failure (CHF) Afib HTN (hypertension) Family History Family History (Updated 12/20/23 @ 10:04 by Jimmie Balderas MD) Father No problems noted. Mother No problems noted. Social History Social History Household Members: Children Housing: House Do you presently have visiting nurse or other home services: No Alcohol intake: never Patient Tobacco Use Status: Former Tobacco user e-Cigarette/Vaping Use: Never Used Second Hand Smoke Exposure: No service: No Physical Exam ED Vital Signs: Vital Signs - 24 hr 03/29/24 10:39 03/29/24 13:07 03/29/24 14:42 Temperature 97.9 F 98.1 F Pulse Rate 88 95 91 Respiratory Rate 20 16 16 Blood Pressure 157/101 H 171/99 H 157/108 H Pulse Oximetry 97 97 96 Oxygen Delivery Method Room Air Room Air Room Air 03/29/24 15:33 Temperature 0 F L Pulse Rate 91 Respiratory Rate 16 Blood Pressure 169/97 H Pulse Oximetry 96 Oxygen Delivery Method Room Air BMI result Body Mass Index 35.8 Const Other: The patient is a chronically ill-appearing 83-year-old woman who was awake and alert. She was interviewed with a deaf interpreter. She looks chronically ill but she does not seem obviously acutely ill. HENMT Other: No obvious signs of acute trauma to the head or the face. No raccoon eyes. No barroso sign. There is a well-healed scar over the left eyebrow area where the patient complains of persistent pain. I do not feel they are any acute findings associated with the scar. Mucous membranes are moist. Eyes Other: Pupils are round equal, conjunctivae are clear, extraocular movements intact. Neck Other: Mild diffuse neck tenderness. No JVD. Resp Effort & Inspection: normal respiratory effort Auscultation: clear to auscultation bilaterally Cardio Other: The patient has an irregular rate and rhythm. No significant murmur. GI Other: Abdomen is soft and nontender. Back/Spine/Pelvis Other: The patient has some tenderness in the lumbar spine and in the left lower lumbar region generally. Skin Other: Skin is intact. Neuro Other: The patient is awake and alert. Cranial nerves are grossly intact. She moves her extremities symmetrically. She has a stooped gait. Extrem Other: The patient has some tenderness in the region of the left hip in the left knee. Medications Administered Discontinued Medications Generic Name Dose Route Start Last Admin Trade Name Freq PRN Reason Stop Dose Admin Acetaminophen 975 mg 03/29/24 14:51 03/29/24 14:56 Acetaminophen 325 Mg Tablet PO 03/29/24 14:52 975 mg ONCE ONE Administration Medical Decision Making Medical Decision Making [facility] Narrative: The patient is an 83-year-old woman. She has a history of atrial fibrillation. She is on apixaban. She had a fall this morning at home. She says that her left knee gave out suddenly and she fell. She is on apixaban. She has a negative head CT. A negative cervical spine CT. X-rays of the lumbar spine, left hip, and left knee shows some degenerative changes in the left knee but no acute findings of significance otherwise. The patient's CBC and basic metabolic panel are unremarkable. Clinically the patient looks reasonably well. She was able to walk with a cane. Her daughter was at the bedside. I explained that the patient likely has some left knee arthritis which may have played a role in the patient's fall this morning. I will provide them with a prescription for a walker (currently the patient has a cane). The patient should follow up with the regular doctor. Lab Data 03/29/24 11:48 03/29/24 11:48 Labs: Lab Results 03/29/24 03/29/24 Range/Units 11:48 12:14 WBC 6.2 (4.8-10.8) X10*3/uL RBC 5.30 (4.20-5.50) X10*6/uL Hgb 15.6 (12.0-16.0) g/dl Hct 46.0 (37.0-47.0) % MCV 86.8 (80.0-98.0) fL MCH 29.4 (27.0-33.0) pg MCHC 33.9 (31.0-35.0) g/dl RDW 14.6 (11.0-16.0) % Plt Count 188 (160-400) X10*3/uL MPV 11.4 (9.4-12.3) fL Immature Gran % (Auto) 0.3 (0.0-0.4) % Neut % (Auto) 68.6 (45-73) % Lymph % (Auto) 22.7 (20-40) % Gonzales % (Auto) 7.1 (2-11) % Eos % (Auto) 0.8 (0-4) % Baso % (Auto) 0.5 (0-2) % Lymph # (Auto) 1.4 (1.2-4.9) X10*3/uL Gonzales # (Auto) 0.4 (0.1-1.2) X10*3/uL Eos # (Auto) 0.1 (0.0-0.4) X10*3/uL Baso # (Auto) 0.0 (0.0-0.2) X10*3/uL Abs Immat Gran (auto) 0.02 (0.00-0.03) X10*3/uL Absolute Neuts (auto) 4.3 (2.0-8.3) x10*3/uL Absolute Nucleated RBC 0.000 (0.0-0.012) X10*3/uL Nucleated RBC % (auto) 0.0 (0.0-0.2) /100WBC Sodium 142 (135-145) mmol/L Potassium 3.7 (3.3-5.1) mmol/L Chloride 108 (96-108) mmol/L Carbon Dioxide 27 (22-29) mmol/L Anion Gap 11 L (12-20) BUN 8 L (9-16) mg/dL Creatinine 0.81 (0.5-1.4) mg/dL Estim Creat Clear Calc 53.5 Estimated GFR > 60 Random Glucose 131 H (60-115) mg/dL Calcium 9.4 (8.4-10.2) mg/dL Magnesium 2.1 (1.6-2.6) mg/dL Total Bilirubin 1.2 H (0.0-1.0) mg/dL Direct Bilirubin 0.3 (0.0-0.5) mg/dL AST 27 (5-31) U/L ALT 9 (0-31) U/L Alkaline Phosphatase 63 (39-117) U/L Troponin I High Sens 4.4 (<3.5-17.0) ng/L Total Protein 7.2 (6.5-8.0) g/dL Albumin 3.8 (3.5-5.0) g/dL Urine Color Yellow Urine Appearance Clear Urine pH 7.0 (5.0-9.0) Ur Specific [place] <= 1.005 (1.005-1.025) Urine Protein Negative (Neg-Trace) mg/dL Urine Glucose (UA) Negative (Negative) mg/dL Urine Ketones Negative (Negative) mg/dL Urine Blood Negative (Negative) Urine Nitrite Negative (Negative) Ur Leukocyte Esterase Negative (Negative) Discharge Plan Discharge Clinical Impression: Fall, Arthritis of left knee Patient Disposition: Home, Self-Care Additional Instructions: Your testing today shows that you have some arthritis in your left knee. You also have some arthritis in your spine. Otherwise you are checking out well. It might be good for you to get a walker to use instead of your cane. You has been provided with a prescription for a walker which may be helpful in getting a walker. Please continue your regular medications. Please follow up as soon as you can with your new primary care doctor, Dr. Dubose. Return to the emergency room if significantly worse. Prescriptions: New (DME) walker Misc See Rx Instructions .Route Qty: 1 0RF Rx Instructions: As directed No Action metoprolol succinate 100 mg Tablet Extended Release 24 Hr 100 mg PO BID losartan 100 mg Tablet 100 mg PO DAILY digoxin 125 mcg (0.125 mg) Tablet 0.125 mg PO DAILY Qty: 30 0RF Protocol: Hold for HR <: HOLD for HR < : 60 furosemide 20 mg Tablet 20 mg PO DAILY Qty: 30 0RF Protocol: Hold for SBP< HOLD for SBP < : 90 Eliquis 5 mg Tablet 5 mg PO BID Qty: 60 0RF cyclobenzaprine 5 mg tablet 5 mg PO TID PRN (Reason: muscle spasm) Qty: 10 0RF Referrals: Kobe Dubose MD [Primary Care Provider] - Interventions: ED Discharge Assessment Last Done: 03/29/24 15:33 Discharge Date/Time: 03/29/24 15:40 Print Language: Kittitian
[2024-03-29 11:54] LABS: MANUAL DIFF FLAG NO
[2024-03-29 11:55] LABS: Basophils Percent Auto 0.5 % (0-2); Eosinophils Absolute Auto 0.1 X10*3/uL (0.0-0.4); Eosinophils Percent Auto 0.8 % (0-4); Hemoglobin 15.6 g/dl (12.0-16.0); Imm Gran Abs Auto 0.02 X10*3/uL (0.00-0.03); Imm Gran Pct Auto 0.3 % (0.0-0.4); Lymphocytes Absolute Auto 1.4 X10*3/uL (1.2-4.9); Lymphocytes Percent Auto 22.7 % (20-40); Mean Corpuscular HGB Conc 33.9 g/dl (31.0-35.0); Mean Corpuscular Hemoglobin 29.4 pg (27.0-33.0); Mean Corpuscular Volume 86.8 fL (80.0-98.0); Mean Platelet Volume 11.4 fL (9.4-12.3); Monocytes Absolute Auto 0.4 X10*3/uL (0.1-1.2); Monocytes Percent Auto 7.1 % (2-11); Neutrophils Absolute Auto 4.3 x10*3/uL (2.0-8.3); Neutrophils Percent Auto 68.6 % (45-73); Platelet Count 188 X10*3/uL (160-400); Red Cell Distribution Width 14.6 % (11.0-16.0); White Blood Count 6.2 X10*3/uL (4.8-10.8)
[2024-03-29 12:13] LABS: Alanine Aminotransferase 9 U/L (0-31); Albumin Level 3.8 g/dL (3.5-5.0); Alkaline Phosphatase 63 U/L (39-117); Anion Gap 11 (12-20); Aspartate Amino Transferase 27 U/L (5-31); Bilirubin Direct 0.3 mg/dL (0.0-0.5); Bilirubin Total 1.2 mg/dL (0.0-1.0); Blood Urea Nitrogen 8 mg/dL (9-16); Calcium 9.4 mg/dL (8.4-10.2); Carbon Dioxide 27 mmol/L (22-29); Chloride 108 mmol/L (96-108); Creatinine Clr Calc Pharmacy 53.5; Estimated Glomerular Filt Rate > 60; Glucose Random 131 mg/dL (60-115); Magnesium 2.1 mg/dL (1.6-2.6); Potassium 3.7 mmol/L (3.3-5.1); Sodium 142 mmol/L (135-145); Total Protein 7.2 g/dL (6.5-8.0)
[2024-03-29 12:15] LABS: Troponin-I High Sensitivity 4.4 ng/L (<3.5-17.0)
[2024-03-29 12:23] LABS: Appearance Urine Clear; Color Urine Yellow; Glucose Urine UA Negative (Negative); Leukocyte Esterase Urine Negative (Negative); Nitrite Urine Negative (Negative); Specific Gravity - Urine <= 1.005 (1.005-1.025); Urine Blood Negative (Negative); Urine Ketones Negative (Negative); Urine Protein Negative (Neg-Trace)
[2024-03-29 13:07] VITALS: BP 171/99; PULSE 95; RESP 16; TEMP 36.7; O2SAT 97
[2024-03-29 14:42] VITALS: BP 157/108; PULSE 91; RESP 16; O2SAT 96
[2024-03-29] MEDS: Acetaminophen 325 MG TABLET 975 MG PO (14:56)
[2024-03-29 15:33] VITALS: BP 169/97; PULSE 91; RESP 16; TEMP -17.7; TEMP 0; O2SAT 96
== END 2024-03-29 15:40 | disposition home or self-care (01) ==
PROVIDERS: Emergency Medicine; Emergency Provider Emergency Medicine; PCP Internal Medicine
DX: S39.92XA Unspecified injury of lower back, initial encounter (principal); M17.12 Unilateral primary osteoarthritis, left knee; M25.552 Pain in left hip; M25.562 Pain in left knee; I48.91 Unspecified atrial fibrillation; W19.XXXA Unspecified fall, initial encounter; Y93.89 Activity, other specified; Y92.89 Other specified places as the place of occurrence of the external cause; Y99.8 Other external cause status; Z79.899 Other long term (current) drug therapy; Z87.891 Personal history of nicotine dependence
CPT/HCPCS: 36415; 70450; 72100; 72125; 73502; 73564; 80048; 80076; 81003; 83735; 84484; 85025; 93005; 99284; 99285

== ENCOUNTER → 2024-03-29 11:37 | Outpatient (BNV) | payer MEDICARE, MEDICAID, SELFPAY | PROVIDERS: Emergency Provider Emergency Medicine; PCP Internal Medicine; Visit Provider Internal Medicine Cardiovascular Disease | DX: R94.31 Abnormal electrocardiogram [ECG] [EKG] (principal) | CPT/HCPCS: 93010 ==

== ENCOUNTER → 2024-03-29 11:37 | Outpatient (BNV) | payer MEDICARE, MEDICAID, SELFPAY | PROVIDERS: Emergency Provider Emergency Medicine; PCP Internal Medicine; Visit Provider Radiology Diagnostic Radiology | DX: M54.2 Cervicalgia (principal); S09.90XA Unspecified injury of head, initial encounter; M25.562 Pain in left knee; M25.552 Pain in left hip; M54.9 Dorsalgia, unspecified | CPT/HCPCS: 70450; 72100; 72125; 73502; 73564 ==

== ENCOUNTER 2024-07-04 11:31 | Outpatient (AMB) | payer MEDICARE, MEDICAID, SELFPAY ==
--- NOTE | 2024-07-04 11:39 | AM.OFFWIN_ITS ---
Intake Vital Signs 07/04/24 11:51 Weight 185 lb BP 122/86 Blood Pressure Location Rt brachial Position Sitting Pulse 89 Pulse Source Pulse Oximeter Temp 98.6 F Temp Source Oral Pulse Oximetry (%) 99 Oxygen Delivery Method Room Air Intake Visit Reasons: HEAD [employer] Cold Symptoms, fall, black eye Intake Note: Patient here for cough, mucus, loss of appetite and fatigue. Pts daughter also mentioned that on tuesday she found pt on the floor of her bedroom in the morning and was unsure if it was because she was feeling weak but had no injuries immediately but the following day she found a bruise on left side of front of head and also around the left eye. Patient Tobacco Use Status: Former Tobacco user Allergies No Known Allergies Allergy (Verified 07/04/24 11:53) Do you need a note to return to daycare/school/sports/work: No HPI HPI Comments History of Present Illness Details History of Present Illness - The patient is an 84-year-old female w ith a past med hx of afib on eliquis, HTN and CHF presenting with her daughter with a fall that occurred 4-5 days ago, over night at some point. The patient has no memory of the fall and her daughter found her the next morning on the floor. She now has a left black eye, a lump on the top of her forehead and is complaining of cold/flu like symptoms. - Since then, she has been weak and relu ctant to get out of bed and very lethargic. - Her memory loss, alert and orientation and personality remains unchanged from baseline, per her daughter Physical Exam General: Cooperative, healthy appearing, comfortable, no acute distress and well developed Orientation: Patient oriented x3, but sometimes forgets stuff (normal for her) Limitations: No limitations Head: 1cm contusion/hematoma to left forehead Ears: Hearing grossly normal bilaterally Nose: Normal External nose present Face and sinus: Left sided facial droop noted, with swelling below left eye Eyes: ecchymoisis and edema surrounding left eye, right eye normal, scleral icterus bilat Neck: Normal visual inspection and Yes full ROM Respiratory: Normal respiratory effort and able to speak in complete sentences. Clear to auscultation bilaterally Cardiovascular: irregular rate and irregular rhythm. Normal S1 and S2 Skin: No rashes or lesions noted Neuro: Patient oriented x3, cranial nerves 2-12 intact except for left sided facial droop which mostly resolves when she smiles (maybe 2/2 edema) Extremities: Normal to inspection [facility] Medical History (Updated 07/04/24 @ 12:11 by Elizabeth Arias PA-C) Congestive heart failure (CHF) Afib HTN (hypertension) Family History (Updated 12/20/23 @ 10:04 by Jimmie Balderas MD) Father No problems noted. Mother No problems noted. Social History Household Members: Children Housing: House Do you presently have visiting nurse or other home services: No Alcohol intake: never Patient Tobacco Use Status: Former Tobacco user e-Cigarette/Vaping Use: Never Used Second Hand Smoke Exposure: No service: No Review of Systems Const All systems reviewed & are unremarkable except as noted in HPI and below Physical Exam Vital Signs: Last Vital Signs Temp 98.6 F 07/04/24 11:51 Pulse 89 07/04/24 11:51 BP 122/86 07/04/24 11:51 Pulse Ox 99 07/04/24 11:51 Oxygen Delivery Method Room Air 07/04/24 11:51 Assessment & Plan Assessment & Plan (1) Unwitnessed fall: Code(s): R29.6 - Repeated falls Plan: The patient's unwitnessed fall, clearly hitting her head, on Eliquis, unclear down time, possible left sided facial droop requires an immediate ER evaluation. Pt in afib with rates 90-110s, other VSS, PE remarkable for contusion to the left forehead and left eye with some scleral icterus, left-sided facial droop possibly secondary to edema of the face, other cranial nerves intact. Called [facility] ED with expect, gave report to triage nurse. Her flu-like symptoms can be addressed following stabilization. Patient was informed and verbally consented to the use of an ambient scribe for clinic note documentation during this visit. Coding Level of Care Code New Pt Level 5 (91932) Diagnoses Unwitnessed fall R29.6
[2024-07-04 11:51] VITALS: BP 122/86; PULSE 89; TEMP 37; O2SAT 99
== END 2024-07-04 12:22 | disposition home or self-care (01) ==
PROVIDERS: PCP Internal Medicine; Visit Provider Physician Assistant
DX: R29.6 Repeated falls (principal)

== ENCOUNTER → 2024-07-04 11:31 | Outpatient (BNVA) | payer MEDICARE, MEDICAID, SELFPAY | PROVIDERS: PCP Internal Medicine; Visit Provider Physician Assistant | DX: Z13.89 Encounter for screening for other disorder (principal) | CPT/HCPCS: 99202 ==

== ENCOUNTER 2024-07-04 12:29 | Emergency (ER) | payer MEDICARE, MEDICAID, SELFPAY ==
--- NOTE | ~2024-07-04 | CT_ITS ---
EXAMINATION: CT HEAD WITHOUT CONTRAST CLINICAL INFORMATION: Fall with head strike, on blood thinners. COMPARISON: 03/29/2024. TECHNIQUE: Contiguous axial imaging was performed from the skull base to vertex without intravenous administration of contrast. This CT examination was performed using dose optimization techniques as appropriate, variously including the following: *Automated exposure control *Adjustment of mA and/or kV according to patient size (this includes techniques or standardized protocols for targeted exams where dose is matched to indication/reason for exam; i.e. extremities or head) *Use of iterative reconstruction technique FINDINGS: Small focus of subarachnoid hemorrhage identified overlying the right posterior frontal and parietal sulci (series 22, images [id number]). No associated contusional injury. No extra-axial fluid collection. No mass effect or edema. No additional intracranial hemorrhage. No CT evidence of acute territorial infarct. Ventricles, sulci, and cisterns are somewhat diffusely prominent, in keeping with age-related involutional changes. No hydrocephalus. No midline shift. Negative hyperdense MCA sign. Negative insular ribbon sign. Patchy periventricular and deep white matter hypoattenuation is consistent with mild to moderate small vessel ischemic changes. Normal pituitary. Mild atheromatous calcification of the bilateral carotid siphons and V4 segments vertebral arteries bilaterally. Globes and orbital contents image normally. There are lens replacements bilaterally. Extracranial soft tissues demonstrate left frontal scalp hematoma and soft tissue swelling, extending to involve the preseptal left orbit. The paranasal sinuses, mastoid air cells, and tympanic cavities are normally aerated. No suspicious bony abnormalities. There are no acute fractures evident. CT/CT head/brain wo IV con IMPRESSION: 1. Small amount of subarachnoid hemorrhage overlying the right posterior frontal and parietal sulci. No additional intracranial hemorrhage. No contusional change or associated mass effect. 2. Left frontal scalp hematoma and soft tissue swelling extending to involve the left preseptal orbit. 3. No fractures evident. Findings discussed with Saulo Ellis of the [facility] via phone call at 1:25 PM, 07/04/2024. Electronically signed by: Good Mendez MD 07/04/2024 01:30 PM EDT
--- NOTE | ~2024-07-04 | CT_ITS ---
EXAMINATION: CT FACIAL BONES WITHOUT CONTRAST CLINICAL INFORMATION: Trauma to left orbit and frontal region. COMPARISON: None. CT head performed concurrently. TECHNIQUE: Spiral CT imaging of the maxillofacial bones and mandible performed in axial plane without contrast. Multiplanar reformatted images were constructed from the axial data set. This CT examination was performed using dose optimization techniques as appropriate, variously including the following: *Automated exposure control *Adjustment of mA and/or kV according to patient size (this includes techniques or standardized protocols for targeted exams where dose is matched to indication/reason for exam; i.e. extremities or head) *Use of iterative reconstruction technique FINDINGS: There is left preseptal soft tissue swelling, extending over the left frontal region where there is a small associated hematoma. Imaged orbits are intact. Orbital contents demonstrate bilateral lens replacements, and senile calcifications. No post septal abnormality. The imaged calvarium is intact. Sphenoid bone is intact. Zygomatic arches are intact. The pterygoid plates are intact. The maxilla is intact. The nasal bones, nasal process, and maxillary spines are intact. The mandible is intact. The TM joints are normally oriented. Mild mucosal thickening seen throughout the ethmoid and left maxillary sinuses. The remainder of the paranasal sinuses, mastoids, and tympanic cavities are normally aerated. CT/CT facial bones wo IV con IMPRESSION: 1. No acute maxillofacial or mandibular fracture. 2. Left preseptal orbital soft tissue swelling extending to overlie the left frontal scalp where there is a small hematoma. There is no calvarial fracture. 3. Mild paranasal sinus disease involving the ethmoid and left maxillary sinuses. Electronically signed by: Good Mendez MD 07/04/2024 01:36 PM EDT
--- NOTE | ~2024-07-04 | CT_ITS ---
EXAMINATION: CT CERVICAL SPINE WITHOUT CONTRAST CLINICAL INFORMATION: Fall, trauma, neck pain. COMPARISON: 03/29/2024. TECHNIQUE: Spiral CT imaging of the cervical spine performed in axial plane without contrast. Multiplanar reformatted images were constructed from the axial data set. This CT examination was performed using dose optimization techniques as appropriate, variously including the following: *Automated exposure control *Adjustment of mA and/or kV according to patient size (this includes techniques or standardized protocols for targeted exams where dose is matched to indication/reason for exam; i.e. extremities or head) *Use of iterative reconstruction technique FINDINGS: CORONAL ALIGNMENT: -Normal. SAGITTAL ALIGNMENT: -There is a normal lordosis. -There is no evidence of traumatic subluxation. C1-C2 AND CRANIOCERVICAL JUNCTION: -Intact and normally aligned. There are degenerative changes of the anterior atlantoaxial joint. VERTEBRAL BODIES AND FACETS: -There is no fracture, compression deformity, or suspicious bone lesion. There is no evidence of traumatic malalignment. -There is normal facet alignment bilaterally. There is multilevel left greater than right hypertrophic degenerative facet change. The left C4-5 facets are fused. DISCS: -There is calcification of the C4-5 disc space. -There is mild diffuse disc space loss, most significant at C4-5, and C6-7. CENTRAL CANAL: -No evidence of high-grade central canal narrowing or large disc herniation allowing for modality limitations. PREVERTEBRAL AND PARAVERTEBRAL SOFT TISSUES: -No soft tissue swelling or fluid collection. -Normal thyroid. -Lung apices appear clear. -Tortuous great vessels noted. CT/CT cervical spine wo IV con IMPRESSION: 1. No CT evidence of acute cervical spine fracture or injury. 2. Moderate diffuse spondylosis of the cervical spine. Electronically signed by: Good Mendez MD 07/04/2024 01:41 PM EDT
[2024-07-04 12:36] VITALS: BP 152/100; PULSE 85; RESP 16; TEMP 37; O2SAT 99; BMI 34.6
--- NOTE | 2024-07-04 12:38 | ECG_ITS ---
Test Reason : fall Blood Pressure : */* mmHG Vent. Rate : 88 BPM Atrial Rate : * BPM P-R Int : * ms QRS Dur : 74 ms QT Int : 366 ms P-R-T Axes : * -11 -8 degrees QTcB Int : 442 ms Atrial fibrillation Minimal voltage criteria for LVH, may be normal variant ( R in aVL ) Abnormal ECG When compared with ECG of 29-Mar-2024 12:02, No significant change was found Referred By: Saulo Ellis Electronically Signed By: Moy Castañeda
--- NOTE | 2024-07-04 12:38 | ED_ITS ---
HPI - General Adult General Chief complaint: General Medical Stated complaint: urgent care called she fell cant remember/ weak Time Seen by Provider: 07/04/24 13:14 Related Data Home Medications ?Medication ?Instructions ?Recorded ?Confirmed losartan 100 mg tablet 100 mg PO DAILY 12/19/23 12/19/23 metoprolol succinate 25 mg 25 mg PO DAILY 07/04/24 tablet,extended release 24 hr Previous Rx's ?Medication ?Instructions ?Recorded apixaban 5 mg tablet (Eliquis) 5 mg PO BID #60 tabs 12/22/23 digoxin 125 mcg (0.125 mg) tablet 0.125 mg PO DAILY #30 tabs 12/22/23 furosemide 20 mg tablet 20 mg PO DAILY #30 tabs 12/22/23 cyclobenzaprine 5 mg tablet 5 mg PO TID PRN muscle spasm #10 02/22/24 tabs walker #1 ea 03/29/24 Allergies Allergy/AdvReac Type Severity Reaction Status Date / Time No Known Allergies Allergy Verified 07/04/24 12:40 [facility] Past Medical History Medical History Congestive heart failure (CHF) Afib HTN (hypertension) Family History Family History Father No problems noted. Mother No problems noted. Social History Social History Household Members: Children Housing: House Do you presently have visiting nurse or other home services: No Alcohol intake: never Patient Tobacco Use Status: Former Tobacco user e-Cigarette/Vaping Use: Never Used Second Hand Smoke Exposure: No Advance Directives: No Advance Directives Information Provided: Yes service: No Physical Exam ED Vital Signs: Vital Signs - 24 hr 07/04/24 12:36 07/04/24 14:00 Temperature 98.6 F 97.8 F Pulse Rate 85 88 Respiratory Rate 16 14 Blood Pressure 152/100 H 162/107 H Pulse Oximetry 99 96 Oxygen Delivery Method Room Air Room Air BMI result Body Mass Index 34.6 Course Course Course Narrative: RME, this is a rapid medical exam performed by Praful Ellis please refer to primary provider for complete H&P- 84-year-old female presents for evaluation of weakness. Per the patient's daughter, the patient has had increased weakness and decreased appetite for the last 5 days. The patient was found on the ground Tuesday morning, it is unclear if she fell Tuesday night or Tuesday morning. She is on Eliquis for AFib. She was ecchymosis to the left periorbital region. She was seen by urgent care today and referred ER. The patient has left-sided facial edema but cranial nerves 2-[address] Plan for CT scan of the brain, facial bones, cervical spine, basic labs and viral testing. Medical Decision Making Lab Data 07/04/24 13:46 07/04/24 13:46 Labs: Lab Results 07/04/24 Range/Units 13:46 WBC 5.1 (4.8-10.8) X10*3/uL RBC 5.21 (4.20-5.50) X10*6/uL Hgb 15.4 (12.0-16.0) g/dl Hct 45.0 (37.0-47.0) % MCV 86.4 (80.0-98.0) fL MCH 29.6 (27.0-33.0) pg MCHC 34.2 (31.0-35.0) g/dl RDW 13.4 (11.0-16.0) % Plt Count 174 (160-400) X10*3/uL MPV 11.2 (9.4-12.3) fL Immature Gran % (Auto) 0.2 (0.0-0.4) % Neut % (Auto) 54.5 (45-73) % Lymph % (Auto) 31.7 (20-40) % [place] % (Auto) 10.9 (2-11) % Eos % (Auto) 2.1 (0-4) % Baso % (Auto) 0.6 (0-2) % Lymph # (Auto) 1.6 (1.2-4.9) X10*3/uL [place] # (Auto) 0.6 (0.1-1.2) X10*3/uL Eos # (Auto) 0.1 (0.0-0.4) X10*3/uL Baso # (Auto) 0.0 (0.0-0.2) X10*3/uL Abs Immat Gran (auto) 0.01 (0.00-0.03) X10*3/uL Absolute Neuts (auto) 2.8 (2.0-8.3) x10*3/uL Absolute Nucleated RBC 0.000 (0.0-0.012) X10*3/uL Nucleated RBC % (auto) 0.0 (0.0-0.2) /100WBC Sodium 140 (135-145) mmol/L Potassium 3.9 (3.3-5.1) mmol/L Chloride 104 (96-108) mmol/L Carbon Dioxide 30 H (22-29) mmol/L Anion Gap 10 L (12-20) BUN 10 (9-16) mg/dL Creatinine 0.72 (0.5-1.4) mg/dL Estim Creat Clear Calc 58.0 Estimated GFR > 60 Random Glucose 115 (60-115) mg/dL Calcium 9.1 (8.4-10.2) mg/dL Total Bilirubin 1.5 H (0.0-1.0) mg/dL AST 50 H (5-31) U/L ALT 28 (0-31) U/L Alkaline Phosphatase 62 (39-117) U/L Total Creatine Kinase 43 (26-140) U/L Troponin I High Sens 5.6 (<3.5-17.0) ng/L Total Protein 7.0 (6.5-8.0) g/dL Albumin 3.7 (3.5-5.0) g/dL Lipase 33 (8-78) U/L Urine Color Yellow Urine Appearance Clear Urine pH 6.5 (5.0-9.0) Ur Specific [place] <= 1.005 (1.005-1.025) Urine Protein Negative (Neg-Trace) mg/dL Urine Glucose (UA) Negative (Negative) mg/dL Urine Ketones Negative (Negative) mg/dL Urine Blood Negative (Negative) Urine Nitrite Negative (Negative) Ur Leukocyte Esterase Negative (Negative) Urine RBC 0-2 (0-2) /HPF Urine WBC 0-5 (0-5) /HPF Ur Squamous Epith Cells 3-5 (0-2) /HPF Urine Bacteria 1+ (None Seen) Hyaline Casts 0-2 (0-2) /LPF Discharge Plan Discharge Clinical Impression: Hemorrhage, subarachnoid, traumatic Qualifiers: Encounter type: initial encounter Loss of consciousness presence/duration: u nknown LOC status Qualified Code(s): S06.6XAA - Traumatic subarachnoid hemorrhage with loss of consciousness status unknown, initial encounter Patient Disposition: er Acute Care Hospital Transfer Details: [facility] Prescriptions: No Action losartan 100 mg Tablet 100 mg PO DAILY digoxin 125 mcg (0.125 mg) Tablet 0.125 mg PO DAILY Qty: 30 0RF Protocol: Hold for HR <: HOLD for HR < : 60 furosemide 20 mg Tablet 20 mg PO DAILY Qty: 30 0RF Protocol: Hold for SBP< HOLD for SBP < : 90 Eliquis 5 mg Tablet 5 mg PO BID Qty: 60 0RF cyclobenzaprine 5 mg tablet 5 mg PO TID PRN (Reason: muscle spasm) Qty: 10 0RF (RACHEL) anna Jhaveri See Rx Instructions .Route Qty: 1 0RF Rx Instructions: As directed metoprolol succinate 25 mg tablet extended release 24 hr 25 mg PO DAILY Discharge Date/Time: 07/04/24 15:12 Print Language: [place]itanian
--- NOTE | 2024-07-04 13:21 | ED_ITS ---
HPI - General Adult General Chief complaint: General Medical Stated complaint: urgent care called she fell cant remember/ weak Time Seen by Provider: 07/04/24 13:14 Source: patient and family (daughter) Mode of arrival: ambulatory Limitations: no limitations History of Present Illness HPI narrative: This is 84 years old patient with a history of atrial fibrillation anticoagulated with apixaban, history of heart failure high blood pressure referred to us by the urgent care for imaging. She fell over the weekend she sustained head injury she has a large left orbital hematoma. The daughter is a that she has been more more weak she does not want to eat. Patient denies any chest pain shortness of breath to me. Onset (ago): day(s) (4) Location: head Radiation: non-radiation Severity: moderate Quality: burning Pain Consistency: constant Relieving factors: none Exacerbating factors: none Associated symptoms: denies other symptoms Related Data Home Medications ?Medication ?Instructions ?Recorded ?Confirmed losartan 100 mg tablet 100 mg PO DAILY 12/19/23 12/19/23 metoprolol succinate 25 mg 25 mg PO DAILY 07/04/24 tablet,extended release 24 hr Previous Rx's ?Medication ?Instructions ?Recorded apixaban 5 mg tablet (Eliquis) 5 mg PO BID #60 tabs 12/22/23 digoxin 125 mcg (0.125 mg) tablet 0.125 mg PO DAILY #30 tabs 12/22/23 furosemide 20 mg tablet 20 mg PO DAILY #30 tabs 12/22/23 cyclobenzaprine 5 mg tablet 5 mg PO TID PRN muscle spasm #10 02/22/24 tabs walker #1 ea 03/29/24 Allergies Allergy/AdvReac Type Severity Reaction Status Date / Time No Known Allergies Allergy Verified 07/04/24 12:40 Review of Systems 2 Constitutional: Constitutional: Reports no additional constitutional complaints Cardiovascular: Cardiovascular: Reports no additional cardiovascular complaints Respiratory: Respiratory: Reports no additional respiratory complaints Gastrointestinal: Gastrointestinal: Reports no additional gastrointestinal complaints [facility] Past Medical History Attestation statement: The following information was validated with the patient. [facility] Narrative: AFib/CHF hypertension Medical History Congestive heart failure (CHF) Afib HTN (hypertension) Family History Family History Father No problems noted. Mother No problems noted. Social History Social History Household Members: Children Housing: House Do you presently have visiting nurse or other home services: No Alcohol intake: never Patient Tobacco Use Status: Former Tobacco user e-Cigarette/Vaping Use: Never Used Second Hand Smoke Exposure: No Advance Directives: No Advance Directives Information Provided: Yes service: No Physical Exam ED Vital Signs: Vital Signs - 24 hr 07/04/24 12:36 Temperature 98.6 F Pulse Rate 85 Respiratory Rate 16 Blood Pressure 152/100 H Pulse Oximetry 99 Oxygen Delivery Method Room Air BMI result Body Mass Index 34.6 Not acute distress Const General: cooperative Orientation/consciousness: patient oriented x3 Limitations: no limitations HENMT Other: Forehead hematoma in the left and orbital hematoma in the left Ears: hearing grossly normal bilaterally Mouth: Normal oral and palatal mucosa present Neck Neck: Yes normal visual inspection and Yes full ROM Chest Chest palpation & inspection: normal inspection of the chest Resp Effort & Inspection: normal respiratory effort Auscultation: clear to auscultation bilaterally Cardio Jugular venous distension: no JVD Rate: regular rate Rhythm: regular rhythm GI Inspection: Yes normal to inspection Palpation (GI): Soft to palpation Percussion: Yes normal to percussion Skin General skin exam: no rashes or lesions noted and elasticity normal Lesions: no lesions Rashes: no rashes Neuro General: patient oriented x3 Cranial nerves: Yes CN's II-XII intact bilaterally Motor exam (neuro): 5/5 motor strength present throughout Course Reevaluation(s) Reevaluation #1: CT scan of the head reviewed small traumatic subarachnoid bleed call placed to [facility] Trauma Time: 14:02 Reevaluation #2: Patient was accepted in transfer by Dr. Rae emergency department [facility]. Spoke with daughter Time: 14:29 Medical Decision Making Medical Decision Making MDM Narrative: Patient is here with head injury left orbital hematoma left frontal hematoma we will obtain imaging of the head and neck Differential Diagnosis Differential Diagnoses: The differential diagnosis associated with the presentation includes Subdural hematoma/epidural hematoma/cerebral contusion Admission/Observation Consideration of admission/observation: Escalation of care including admission/observation considered Lab Data [facility] Lab Attestation statement: I reviewed the patient's lab results. 07/04/24 13:46 07/04/24 13:46 Labs: Lab Results 07/04/24 Range/Units 13:46 WBC 5.1 (4.8-10.8) X10*3/uL RBC 5.21 (4.20-5.50) X10*6/uL Hgb 15.4 (12.0-16.0) g/dl Hct 45.0 (37.0-47.0) % MCV 86.4 (80.0-98.0) fL MCH 29.6 (27.0-33.0) pg MCHC 34.2 (31.0-35.0) g/dl RDW 13.4 (11.0-16.0) % Plt Count 174 (160-400) X10*3/uL MPV 11.2 (9.4-12.3) fL Immature Gran % (Auto) 0.2 (0.0-0.4) % Neut % (Auto) 54.5 (45-73) % Lymph % (Auto) 31.7 (20-40) % [place] % (Auto) 10.9 (2-11) % Eos % (Auto) 2.1 (0-4) % Baso % (Auto) 0.6 (0-2) % Lymph # (Auto) 1.6 (1.2-4.9) X10*3/uL [place] # (Auto) 0.6 (0.1-1.2) X10*3/uL Eos # (Auto) 0.1 (0.0-0.4) X10*3/uL Baso # (Auto) 0.0 (0.0-0.2) X10*3/uL Abs Immat Gran (auto) 0.01 (0.00-0.03) X10*3/uL Absolute Neuts (auto) 2.8 (2.0-8.3) x10*3/uL Absolute Nucleated RBC 0.000 (0.0-0.012) X10*3/uL Nucleated RBC % (auto) 0.0 (0.0-0.2) /100WBC Sodium 140 (135-145) mmol/L Potassium 3.9 (3.3-5.1) mmol/L Chloride 104 (96-108) mmol/L Carbon Dioxide 30 H (22-29) mmol/L Anion Gap 10 L (12-20) BUN 10 (9-16) mg/dL Creatinine 0.72 (0.5-1.4) mg/dL Estim Creat Clear Calc 58.0 Estimated GFR > 60 Random Glucose 115 (60-115) mg/dL Calcium 9.1 (8.4-10.2) mg/dL Total Bilirubin 1.5 H (0.0-1.0) mg/dL AST 50 H (5-31) U/L ALT 28 (0-31) U/L Alkaline Phosphatase 62 (39-117) U/L Total Creatine Kinase 43 (26-140) U/L Troponin I High Sens 5.6 (<3.5-17.0) ng/L Total Protein 7.0 (6.5-8.0) g/dL Albumin 3.7 (3.5-5.0) g/dL Lipase 33 (8-78) U/L Urine Color Yellow Urine Appearance Clear Urine pH 6.5 (5.0-9.0) Ur Specific [place] <= 1.005 (1.005-1.025) Urine Protein Negative (Neg-Trace) mg/dL Urine Glucose (UA) Negative (Negative) mg/dL Urine Ketones Negative (Negative) mg/dL Urine Blood Negative (Negative) Urine Nitrite Negative (Negative) Ur Leukocyte Esterase Negative (Negative) Urine RBC 0-2 (0-2) /HPF Urine WBC 0-5 (0-5) /HPF Ur Squamous Epith Cells 3-5 (0-2) /HPF Urine Bacteria 1+ (None Seen) Hyaline Casts 0-2 (0-2) /LPF Independent Interpretation I performed an independent interpretation of an: CT Scan Radiology Impression Discussion of test interpretation with radiology: I have reviewed the radiologist's reading. Radiologist Impression: traumatic subaracnoid bleed Critical Care Time Critical Care Time Critical Care Time: Yes Total Critical Care Time: 60 Attestation: Taking care of the patient, arranging transfer, speaking with daughter Discharge Plan Discharge Clinical Impression: Hemorrhage, subarachnoid, traumatic Qualifiers: Encounter type: initial encounter Loss of consciousness presence/duration: u nknown LOC status Qualified Code(s): S06.6XAA - Traumatic subarachnoid hemorrhage with loss of consciousness status unknown, initial encounter Patient Disposition: Xfer Acute Care Hospital Transfer Details: [facility] Prescriptions: No Action losartan 100 mg Tablet 100 mg PO DAILY digoxin 125 mcg (0.125 mg) Tablet 0.125 mg PO DAILY Qty: 30 0RF Protocol: Hold for HR <: HOLD for HR < : 60 furosemide 20 mg Tablet 20 mg PO DAILY Qty: 30 0RF Protocol: Hold for SBP< HOLD for SBP < : 90 Eliquis 5 mg Tablet 5 mg PO BID Qty: 60 0RF cyclobenzaprine 5 mg tablet 5 mg PO TID PRN (Reason: muscle spasm) Qty: 10 0RF (RACHEL) anna Jhaveri See Rx Instructions .Route Qty: 1 0RF Rx Instructions: As directed metoprolol succinate 25 mg tablet extended release 24 hr 25 mg PO DAILY Print Language: [place]
--- NOTE | 2024-07-04 13:50 | PC.NURSE ---
Addendum entered by Masha Ruiz RN 07/04/24 13:52: patient noted to have bruising around left eye, patient noted to have lump on left hair line. patient pupils are equal and reactive to light. patient daughter states fall probably happened between tuesday and tuesday over night, bruising over eye revealed earlier this week. patient does not remember fall or being picked up from floor. Original Note: patient ambulated to room with walker from , IV started in patient right AC, labs drawn and sent. patient is awake and alert, at baseline per family. patient denies any pain, headache, dizziness.
[2024-07-04 13:53] LABS: MANUAL DIFF FLAG NO
[2024-07-04 13:55] LABS: Appearance Urine Clear; Color Urine Yellow; Glucose Urine UA Negative (Negative); Leukocyte Esterase Urine Negative (Negative); Nitrite Urine Negative (Negative); PH 6.5 (5.0-9.0); Specific Gravity - Urine <= 1.005 (1.005-1.025); Urine Blood Negative (Negative); Urine Ketones Negative (Negative); Urine Protein Negative (Neg-Trace)
[2024-07-04 13:59] LABS: Bacteria Urine 1+ (None Seen); Hyaline Casts Urine 0-2 /LPF (0-2); RBC Urine 0-2 /HPF (0-2); WBC Urine 0-5 /HPF (0-5)
[2024-07-04 14:00] VITALS: BP 162/107; PULSE 88; RESP 14; TEMP 36.6; O2SAT 96
[2024-07-04 14:09] LABS: Basophils Percent Auto 0.6 % (0-2); Eosinophils Absolute Auto 0.1 X10*3/uL (0.0-0.4); Eosinophils Percent Auto 2.1 % (0-4); Hemoglobin 15.4 g/dl (12.0-16.0); Imm Gran Abs Auto 0.01 X10*3/uL (0.00-0.03); Imm Gran Pct Auto 0.2 % (0.0-0.4); Lymphocytes Absolute Auto 1.6 X10*3/uL (1.2-4.9); Lymphocytes Percent Auto 31.7 % (20-40); Mean Corpuscular HGB Conc 34.2 g/dl (31.0-35.0); Mean Corpuscular Hemoglobin 29.6 pg (27.0-33.0); Mean Corpuscular Volume 86.4 fL (80.0-98.0); Mean Platelet Volume 11.2 fL (9.4-12.3); Monocytes Absolute Auto 0.6 X10*3/uL (0.1-1.2); Monocytes Percent Auto 10.9 % (2-11); Neutrophils Absolute Auto 2.8 x10*3/uL (2.0-8.3); Neutrophils Percent Auto 54.5 % (45-73); Platelet Count 174 X10*3/uL (160-400); Red Blood Count 5.21 X10*6/uL (4.20-5.50); Red Cell Distribution Width 13.4 % (11.0-16.0); White Blood Count 5.1 X10*3/uL (4.8-10.8)
[2024-07-04 14:16] LABS: Alanine Aminotransferase 28 U/L (0-31); Albumin Level 3.7 g/dL (3.5-5.0); Alkaline Phosphatase 62 U/L (39-117); Anion Gap 10 (12-20); Aspartate Amino Transferase 50 U/L (5-31); Bilirubin Total 1.5 mg/dL (0.0-1.0); Blood Urea Nitrogen 10 mg/dL (9-16); Calcium 9.1 mg/dL (8.4-10.2); Carbon Dioxide 30 mmol/L (22-29); Chloride 104 mmol/L (96-108); Estimated Glomerular Filt Rate > 60; Glucose Random 115 mg/dL (60-115); Lipase 33 U/L (8-78); Potassium 3.9 mmol/L (3.3-5.1); Sodium 140 mmol/L (135-145)
[2024-07-04 14:19] LABS: Troponin-I High Sensitivity 5.6 ng/L (<3.5-17.0)
--- NOTE | 2024-07-04 14:41 | PC.NURSE ---
report given to Georgia WILHELM at [facility]
[2024-07-04 15:27] LABS: Influenza A PCR NEGATIVE (Negative); Influenza B PCR NEGATIVE (Negative); Resp Syncy Virus RNA Qual PCR NEGATIVE (Negative); SARS COV2 PCR INHOUSE POSITIVE (Negative)
== END 2024-07-04 15:12 | disposition short-term general hospital (02) ==
PROVIDERS: Physician Assistant; Emergency Provider Emergency Medicine; PCP Internal Medicine
DX: S06.6XAA Traumatic subarachnoid hemorrhage with loss of consciousness status unknown, initial encounter (principal); R51.9 Headache, unspecified; M54.2 Cervicalgia; I48.91 Unspecified atrial fibrillation; W18.30XA Fall on same level, unspecified, initial encounter; Y93.9 Activity, unspecified; Y92.9 Unspecified place or not applicable; Y99.8 Other external cause status; Z79.899 Other long term (current) drug therapy; Z87.891 Personal history of nicotine dependence; Z79.01 Long term (current) use of anticoagulants; Z03.818 Encounter for observation for suspected exposure to other biological agents ruled out
CPT/HCPCS: 0241U; 36415; 70450; 70486; 72125; 80053; 81001; 82550; 83690; 84484; 85025; 93005; 99202; 99284

== ENCOUNTER → 2024-07-04 12:38 | Outpatient (BNV) | payer MEDICARE, MEDICAID, SELFPAY | PROVIDERS: Emergency Provider Emergency Medicine; PCP Internal Medicine; Visit Provider Radiology Diagnostic Radiology | DX: M47.892 Other spondylosis, cervical region (principal); R22.0 Localized swelling, mass and lump, head | CPT/HCPCS: 70450; 70486; 72125 ==

== ENCOUNTER → 2024-07-04 12:38 | Outpatient (BNV) | payer MEDICARE, MEDICAID, SELFPAY | PROVIDERS: Emergency Provider Emergency Medicine; PCP Internal Medicine; Visit Provider Internal Medicine Cardiovascular Disease | DX: I48.91 Unspecified atrial fibrillation (principal) | CPT/HCPCS: 93010 ==

== ENCOUNTER 2024-08-31 17:32 | Emergency (ER) | payer MEDICARE, OTHER, SELFPAY ==
--- NOTE | ~2024-08-31 | XR_ITS ---
CLINICAL HISTORY: chest pressure 2 view chest x-ray Comparison: 02/22/2024 11:52 AM EST: ID Findings: The heart is enlarged. 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 Mild bilateral interstitial prominence. Mild blunting of posterior costophrenic angle may represent small pleural effusion or pleural thickening/scarring. No pneumothorax. No acute fracture. Degenerative changes in the thoracic spine and bilateral acromioclavicular joints. IMPRESSION: 1. Cardiomegaly and mild interstitial prominence may represent low-grade congestive heart failure. Correlate clinically. 2. Mild blunting of posterior costophrenic angle may represent small pleural effusion versus pleural thickening/scarring. This document has been electronically signed by: Viviana Arroyo MD on 08/31/2024 19:05:21
--- NOTE | 2024-08-31 17:34 | ECG_ITS ---
Test Reason : CP Blood Pressure : */* mmHG Vent. Rate : 89 BPM Atrial Rate : * BPM P-R Int : * ms QRS Dur : 74 ms QT Int : 338 ms P-R-T Axes : * -3 4 degrees QTcB Int : 411 ms Atrial fibrillation Abnormal ECG When compared with ECG of 04-Jul-2024 13:19, No significant change was found Referred By: Generic ED Physician Electronically Signed By: KRISTYN GARNER
[2024-08-31 18:02] VITALS: BP 187/118; PULSE 82; RESP 16; TEMP 36.4; O2SAT 97; BMI 34.4
--- NOTE | 2024-08-31 18:08 | ED.CHESTPAIN ---
HPI - Chest Pain General Chief Complaint: Chest Pain Stated Complaint: chest pain Time Seen by Provider: 08/31/24 19:01 History of Present Illness ED Provider: Naveen Martinez MD HPI narrative: 84-year-old female with history of AFib, hypertension currently not on anticoagulants due to fall risks. Anna at baseline lives with family here in the [place] for about a [place]. Adherent with other medications including digoxin. Came in for a brief episode about 5 minutes of atypical nonradiating left chest discomfort at rest sharp in the left superior breast region. No recent trauma. She has chronic dyspnea on exertion that is unchanged per her and the daughter who is at the bedside. No diaphoresis nausea vomiting no hemoptysis cough fever. She feels mild edema to the bilateral ankles no redness this is chronic and fluctuating denies abdominal pain Related Data Home Medications ?Medication ?Instructions ?Recorded ?Confirmed losartan 100 mg tablet 100 mg PO DAILY 12/19/23 12/19/23 metoprolol succinate 25 mg 25 mg PO DAILY 07/04/24 tablet,extended release 24 hr Previous Rx's ?Medication ?Instructions ?Recorded apixaban 5 mg tablet (Eliquis) 5 mg PO BID #60 tabs 12/22/23 digoxin 125 mcg (0.125 mg) tablet 0.125 mg PO DAILY #30 tabs 12/22/23 furosemide 20 mg tablet 20 mg PO DAILY #30 tabs 12/22/23 cyclobenzaprine 5 mg tablet 5 mg PO TID PRN muscle spasm #10 02/22/24 tabs walker #1 ea 03/29/24 Allergies Allergy/AdvReac Type Severity Reaction Status Date / Time No Known Allergies Allergy Verified 08/31/24 18:08 [facility] Past Medical History Medical History Congestive heart failure (CHF) Afib HTN (hypertension) Family History Family History Father No problems noted. Mother No problems noted. Social History Social History Household Members: Children Housing: House Do you presently have visiting nurse or other home services: No Alcohol intake: never Patient Tobacco Use Status: Former Tobacco user e-Cigarette/Vaping Use: Never Used Second Hand Smoke Exposure: No Advance Directives: No Advance Directives Information Provided: No Do you have a plan to hurt others: No Plan service: No Physical Exam Vital Signs: Vital Signs: Last Vital Signs Temp 98.2 F 08/31/24 21:19 Pulse 87 08/31/24 21:19 Resp 12 08/31/24 21:19 BP 151/88 H 08/31/24 21:19 Pulse Ox 97 08/31/24 21:19 O2 Del Method Room Air 08/31/24 21:19 BMI result Body Mass Index 34.4 Const: Other: EXAM: Gen: Alert, awake, well appearing, well hydrated. Head: Atraumatic Eyes: Anicteric, Normal conjunctiva. ENT: Moist mucosa, no pallor. ? Neck: Supple. Respiratory: Breathing comfortably, No distress.Clear to auscultation bilaterally, symmetric chest expansion, No wheeze, rales, ronchi. Cardiovascular: Irregularly irregular not rapid. No murmurs or rub. Well perfused periphery, warm extremities. Nonpitting edema to the ankles soft compartments no calf tenderness Abdominal: No FOCAL TENDERNESS. Soft, no objective distension. No palpable masses or obvious organomegaly. ?No guarding, no rebound tenderness or other peritoneal findings. : No flank tenderness. Neuro: Alert. Gross movement of all extremities intact. ? Psych: Calm. Cooperative. MSK: No grossly visible deformity. Vital signs: See flowsheet Course Course Course Narrative: 08/31/24 180 AMY Hannon This is a Rapid Medical Examination (RME) performed by Dov Tirado PA-C in triage. Full HPI, ROS, assessment and treatment plan per primary provider in the Main ED. Hx: 84 yo F hx HTN, afib on eliquis here for eval of intermittent L chest pressure and increased LE swelling x mo. PE/vitals: hypertensive, appears SOB Plan: labs, EKG Medications Administered Discontinued Medications Generic Name Dose Route Start Last Admin Trade Name Freq PRN Reason Stop Dose Admin Metoprolol Tartrate 2.5 mg 08/31/24 19:54 08/31/24 20:08 Metoprolol Tartrate 5 Mg/5 Ml Vial IVPUSH 08/31/24 19:55 2.5 mg ONCE ONE Administration Protocol Medical Decision Making Medical Decision Making MDM Narrative: [age] female with AFib hypertension,? Intracranial hemorrhage several months ago at [facility], not currently on anticoagulation. Mild BNP elevation. AFib with normal-appearing LV function. No RV dilation. No pericardial effusion. No significant apical B-lines on ultrasound. X-ray with cardiomegaly no effusions or infiltrates Patient returned from the bathroom at 1 point during the ED course mildly dyspneic but did not appear distressed her and the daughter reports this is normal for minimal exertion and chronic. Not ill or toxic appearing. Not requiring supplemental oxygen. Differential Diagnosis Differential Diagnoses: The differential diagnosis associated with the presentation includes CHF, pericardial effusion, pleural effusion, pulmonary edema, Lab Data MDM Lab Attestation statement: I reviewed the patient's lab results. 08/31/24 18:26 08/31/24 18:26 Labs: Lab Results 08/31/24 08/31/24 Range/Units 18:26 19:18 WBC 6.9 (4.8-10.8) X10*3/uL RBC 5.08 (4.20-5.50) X10*6/uL Hgb 14.9 (12.0-16.0) g/dl Hct 44.4 (37.0-47.0) % MCV 87.4 (80.0-98.0) fL MCH 29.3 (27.0-33.0) pg MCHC 33.6 (31.0-35.0) g/dl RDW 13.9 (11.0-16.0) % Plt Count 185 (160-400) X10*3/uL MPV 11.2 (9.4-12.3) fL Immature Gran % (Auto) 0.3 (0.0-0.4) % Neut % (Auto) 50.1 (45-73) % Lymph % (Auto) 36.2 (20-40) % [place] % (Auto) 9.6 (2-11) % Eos % (Auto) 2.9 (0-4) % Baso % (Auto) 0.9 (0-2) % Lymph # (Auto) 2.5 (1.2-4.9) X10*3/uL [place] # (Auto) 0.7 (0.1-1.2) X10*3/uL Eos # (Auto) 0.2 (0.0-0.4) X10*3/uL Baso # (Auto) 0.1 (0.0-0.2) X10*3/uL Abs Immat Gran (auto) 0.02 (0.00-0.03) X10*3/uL Absolute Neuts (auto) 3.5 (2.0-8.3) x10*3/uL Absolute Nucleated RBC 0.000 (0.0-0.012) X10*3/uL Nucleated RBC % (auto) 0.0 (0.0-0.2) /100WBC Sodium 143 (135-145) mmol/L Potassium 4.1 (3.3-5.1) mmol/L Chloride 107 (96-108) mmol/L Carbon Dioxide 29 (22-29) mmol/L Anion Gap 11 L (12-20) BUN 11 (9-16) mg/dL Creatinine 0.81 (0.5-1.4) mg/dL Estim Creat Clear Calc 51.3 Estimated GFR > 60 Random Glucose 116 H (60-115) mg/dL Calcium 9.5 (8.4-10.2) mg/dL Magnesium 2.2 (1.6-2.6) mg/dL Total Bilirubin 1.1 H (0.0-1.0) mg/dL AST 24 (5-31) U/L ALT 13 (0-31) U/L Alkaline Phosphatase 74 (39-117) U/L Troponin I High Sens 13.8 D 13.3 (<3.5-17.0) ng/L B-Natriuretic Peptide 439 H (<100) pg/mL Total Protein 7.2 (6.5-8.0) g/dL Albumin 3.9 (3.5-5.0) g/dL Lipase 23 (8-78) U/L Independent Interpretation I performed an independent interpretation of an: EKG (AFib, rate 89, no acute ischemic changes.) and Plain X-Ray (Cardiomegaly, no effusions or infiltrates) Radiology Impression Discussion of test interpretation with radiology: I have reviewed the radiologist's reading. Chronic Conditions Patient?s care impacted by: Hypertension Discharge Plan Discharge Clinical Impression: Atypical chest pain, Unwitnessed fall Patient Disposition: Home, Self-Care Instructions: Chest Pain (DC) Additional Instructions: DISCHARGE DIAGNOSES: Chest pain of unclear cause. Heart attack excluded by blood tests We can not completely exclude other cardiac causes that may need to be elucidated as outpatient with further testing by your feather cutting machine feeder HISTORY OF PRESENTATION: ?Chest pain lasting 5 minutes unchanged dyspnea on exertion EMERGENCY DEPARTMENT COURSE,TESTS, TREATMENTS: While in the ED today blood tests did not show elevated heart attack enzyme. Reassuring EKG in atrial fibrillation DISCHARGE MEDICATIONS: ?[We have made no changes to your regular medication regimen] FOLLOW-UP: ?Call your primary or general physician soon as possible to discuss your symptoms, your ED visit and to discuss follow up plans Call your feather cutting machine feeder for follow up INSTRUCTIONS ?& RETURN PRECAUTIONS: If any symptoms change first call your primary physician, if it is after-hours your primary doctors office should have a provider vice president of instruction you can speak with. If the symptoms are severe or very concerning to you then call 911 or return to the ED. Return if he gets another episode of significant chest pain for evaluation here Naveen Martinez MD Emergency Physician [facility] Prescriptions: No Action losartan 100 mg Tablet 100 mg PO DAILY digoxin 125 mcg (0.125 mg) Tablet 0.125 mg PO DAILY Qty: 30 0RF Protocol: Hold for HR <: HOLD for HR < : 60 furosemide 20 mg Tablet 20 mg PO DAILY Qty: 30 0RF Protocol: Hold for SBP< HOLD for SBP < : 90 Eliquis 5 mg Tablet 5 mg PO BID Qty: 60 0RF cyclobenzaprine 5 mg tablet 5 mg PO TID PRN (Reason: muscle spasm) Qty: 10 0RF (DME) anna Jhaveri See Rx Instructions .Route Qty: 1 0RF Rx Instructions: As directed metoprolol succinate 25 mg tablet extended release 24 hr 25 mg PO DAILY Interventions: ED Discharge Assessment Last Done: 08/31/24 21:19 Discharge Date/Time: 08/31/24 21:20 Print Language: Kinyarwanda
[2024-08-31 18:32] LABS: Basophils Absolute Auto 0.1 X10*3/uL (0.0-0.2); Basophils Percent Auto 0.9 % (0-2); Eosinophils Absolute Auto 0.2 X10*3/uL (0.0-0.4); Eosinophils Percent Auto 2.9 % (0-4); Hematocrit 44.4 % (37.0-47.0); Hemoglobin 14.9 g/dl (12.0-16.0); Imm Gran Abs Auto 0.02 X10*3/uL (0.00-0.03); Imm Gran Pct Auto 0.3 % (0.0-0.4); Lymphocytes Absolute Auto 2.5 X10*3/uL (1.2-4.9); Lymphocytes Percent Auto 36.2 % (20-40); MANUAL DIFF FLAG NO; Mean Corpuscular HGB Conc 33.6 g/dl (31.0-35.0); Mean Corpuscular Hemoglobin 29.3 pg (27.0-33.0); Mean Corpuscular Volume 87.4 fL (80.0-98.0); Mean Platelet Volume 11.2 fL (9.4-12.3); Monocytes Absolute Auto 0.7 X10*3/uL (0.1-1.2); Monocytes Percent Auto 9.6 % (2-11); Neutrophils Absolute Auto 3.5 x10*3/uL (2.0-8.3); Neutrophils Percent Auto 50.1 % (45-73); Platelet Count 185 X10*3/uL (160-400); Red Blood Count 5.08 X10*6/uL (4.20-5.50); Red Cell Distribution Width 13.9 % (11.0-16.0); White Blood Count 6.9 X10*3/uL (4.8-10.8)
[2024-08-31 18:49] LABS: Alanine Aminotransferase 13 U/L (0-31); Albumin Level 3.9 g/dL (3.5-5.0); Alkaline Phosphatase 74 U/L (39-117); Anion Gap 11 (12-20); Aspartate Amino Transferase 24 U/L (5-31); Bilirubin Total 1.1 mg/dL (0.0-1.0); Blood Urea Nitrogen 11 mg/dL (9-16); Calcium 9.5 mg/dL (8.4-10.2); Carbon Dioxide 29 mmol/L (22-29); Chloride 107 mmol/L (96-108); Creatinine Clr Calc Pharmacy 51.3; Estimated Glomerular Filt Rate > 60; Glucose Random 116 mg/dL (60-115); Lipase 23 U/L (8-78); Magnesium 2.2 mg/dL (1.6-2.6); Potassium 4.1 mmol/L (3.3-5.1); Sodium 143 mmol/L (135-145); Total Protein 7.2 g/dL (6.5-8.0)
[2024-08-31 18:55] LABS: B Type Natriuretic Peptide 439 pg/mL (<100); Troponin-I High Sensitivity 13.8 ng/L (<3.5-17.0)
[2024-08-31 19:48] LABS: Troponin-I High Sensitivity 13.3 ng/L (<3.5-17.0)
[2024-08-31] MEDS: Metoprolol Tartrate 5 MG/5 ML VIAL 2.5 MG IVPUSH (20:08)
[2024-08-31 20:48] VITALS: BP 151/88; PULSE 87; RESP 12; O2SAT 97
[2024-08-31 21:19] VITALS: BP 151/88; PULSE 87; RESP 12; TEMP 36.8; O2SAT 97
== END 2024-08-31 21:20 | disposition home or self-care (01) ==
PROVIDERS: Physician Assistant Medical; Emergency Provider Emergency Medicine; PCP Internal Medicine
DX: R07.89 Other chest pain (principal); R60.0 Localized edema; R06.02 Shortness of breath; I10 Essential (primary) hypertension; Z87.891 Personal history of nicotine dependence; Z79.899 Other long term (current) drug therapy
CPT/HCPCS: 36415; 71046; 80053; 83690; 83735; 83880; 84484; 85025; 93005; 96374; 99284

== ENCOUNTER → 2024-08-31 17:34 | Outpatient (BNV) | payer MEDICARE, MEDICAID, SELFPAY | PROVIDERS: Emergency Provider Emergency Medicine; PCP Internal Medicine; Visit Provider Internal Medicine | DX: I48.91 Unspecified atrial fibrillation (principal) | CPT/HCPCS: 93010 ==

== ENCOUNTER → 2024-08-31 18:09 | Outpatient (BNV) | payer MEDICARE, MEDICAID, SELFPAY | PROVIDERS: Emergency Provider Emergency Medicine; PCP Internal Medicine; Visit Provider Specialist | DX: I51.7 Cardiomegaly (principal) | CPT/HCPCS: 71046 ==